=== PATIENT | male | born 1955 | race Caucasian/White ===

== ENCOUNTER 2019-02-06 10:05 | Outpatient (CLI) | payer MEDICARE, MEDICAID ==
--- NOTE | 2019-02-06 10:33 | RAD ---
2 views chest: 02/06/2019 COMPARISON: None available HISTORY: Dyspnea on exertion, COPD FINDINGS: Increased linear interstitial density with pulmonary hyperinflation noted, consistent with the provided history of COPD. Dual lead transvenous pacing device inserted via left subclavian approa ch. No pneumothorax or pleural fluid. No focal consolidation or alveolar edema. IMPRESSION: No acute findings.
== END 2019-02-06 10:06 | disposition home or self-care (01) ==
LOC: BICRAD 10:05
PROVIDERS: ATTEND Internal Medicine
DX: J44.9 Chronic obstructive pulmonary disease, unspecified (principal); R06.09 Other forms of dyspnea
CPT/HCPCS: 71046

== ENCOUNTER 2019-02-27 11:19 | Observation (INO) | payer MEDICARE, MEDICAID ==
[2019-02-27 11:43] LABS: #Basophils 0.1 thou/uL (0.0-0.2); #Eosinphils 0.4 thou/uL (0.0-0.7); #Lymphocytes 1.1 thou/uL (1.20-3.40); #Monocytes 0.6 thou/uL (0.11-0.59); #Neutrophils 2.8 thou/uL (1.40-6.50); %Basophils 1.1 % (0.0-1.0); %Eosinophils 7.4 % (0.0-10.0); %Lymphocytes 22.7 % (21.0-51.0); %Monocytes 12.6 % (0.0-10.0); %Neutrophils 56.1 % (42.0-75.0); Hemoglobin 12.9 g/dL (14.0-18.0); Mean Corpuscular HGB CONC 33.2 g/dL (32.0-36.0); Mean Corpuscular Hemoglobin 28.7 pg (27.0-31.0); Mean Corpuscular Volume 86.4 fL (78.0-98.0); Mean Platelet Volume 8.3 fL (7.4-10.4); Platelet Count 209 thou/uL (130-400); RBC Distribution Width 13.5 % (11.5-14.5); Red Blood Cell (RBC) Count 4.49 mill/uL (4.70-6.10); White Blood Cell (WBC) Count 4.9 thou/uL (4.8-10.8)
--- NOTE | 2019-02-27 11:48 | RAD ---
XR Chest 1 View Portable HISTORY: Chest pain COMPARISON: 02/06/2019 FINDINGS: The heart size is normal. The lungs are well expanded without focal areas of consolidation, pneumothorax or pleural effusions. Left-sided pacer device remains in place. There are degenerative changes in the spine. IMPRESSION: No radiographic evidence of acute cardiopulmonary process.
[2019-02-27 12:11] LABS: ALT (SGPT) 29 U/L (8-55); AST (SGOT) 29 U/L (5-34); Albumin 4.2 g/dL (3.4-4.8); Alkaline Phosphatase 62 U/L (40-150); Anion Gap 10 mmol/L (10-20); BUN (Urea Nitrogen) 15 mg/dL (8.4-25.7); Bilirubin, Total 0.5 mg/dL (0.2-1.2); CK (CPK) 469 U/L (30-200); Calc. Creatinine Clearance 0 mL/min (70-130); Calcium 9.6 mg/dL (7.8-10.44); Carbon Dioxide 25 mmol/L (23-31); Chloride 110 mmol/L (98-107); Estimated GFR-MDRD 75; Globulin 2.6 g/dL (2.4-3.5); Glucose 116 mg/dL (80-115); Lipase 46 U/L (8-78); Potassium 4.1 mmol/L (3.5-5.1); Protein, Total 6.8 g/dL (5.8-8.1); Sodium 141 mmol/L (136-145)
[2019-02-27] MEDS ORDERED: Aspirin Chewable 81 MG TAB ONE (14:02)
[2019-02-27 15:08] LABS: Troponin I Less than 0.010 ng/mL (< 0.028)
[2019-02-27 16:20] VITALS: BMI 30.3
[2019-02-27 18:10] LABS: Troponin I Less than 0.010 ng/mL (< 0.028)
[2019-02-27] MEDS ORDERED: Gabapentin 300 MG CAP PO SCH (21:45)
[2019-02-27] MEDS ORDERED: hydrOXYzine Pamoate 25 mg Capsule PO SCH (21:45)
[2019-02-27] MEDS ORDERED: Acetaminophen 325 MG TAB PO PRN (21:52)
[2019-02-27] MEDS ORDERED: Acetaminophen 650 MG Suppository PR PRN (21:52)
[2019-02-27] MEDS ORDERED: Ondansetron ODT 4 MG TAB PO PRN (21:52)
[2019-02-27] MEDS: ALPRAZolam 1 MG TAB PO PRN (22:24)
[2019-02-28] MEDS ORDERED: Sodium Chloride 0.9% 1,000 ML IV SCH (01:00)
[2019-02-28 02:05] VITALS: BP 168/88; TEMP 97.6
--- NOTE | 2019-02-28 02:09 | HP ---
CHIEF COMPLAINT: Chest pain. HISTORY OF PRESENT ILLNESS: Mr. Fishman is a pleasant 63-year-old man, who presents complaining of chest pain that has been going on for the last 2 weeks on the right side of his chest and became suddenly worse yesterday evening around 11 p.m. The patient states it felt like a tightness in the right side of his chest. He also experienced pain in his mid upper back. The patient reports having increased pain with movements. He has not had any improvement since last night. He states initially the pain was tolerable and is unable to rate it, but since yesterday evening, the pain has been 9/10 in severity. He denies any pain down his arms or up his jaw. No associated nausea, vomiting, or diaphoresis. He denies any trauma. He reports occasional cough at baseline, but has not had any coughing fits. No heavy lifting. Denies any shortness of breath or hemoptysis. No fevers, chills, or sweats. REVIEW OF SYSTEMS: All other review of systems is negative. PAST MEDICAL HISTORY: 1. CVA in 2007. 2. Hypertension. 3. Asthma. PAST SURGICAL HISTORY: 1. Neck and back surgery at age 23. 2. Pacemaker. SOCIAL HISTORY: The patient smokes. Denies any alcohol use or drug use. ALLERGIES: CODEINE. CURRENT MEDICATIONS: 1. Baby aspirin. 2. Allopurinol. PHYSICAL EXAMINATION: GENERAL: The patient appears well developed, well nourished, and is in no acute distress. VITAL SIGNS: Temperature 97.3, pulse 75, respirations 18, O2 saturation 95% on room air, blood pressure 173/82. HEENT: Normocephalic and atraumatic. Pupils are equal, round, and reactive to light. Sclerae without icterus. Oropharynx is clear. NECK: Supple without lymphadenopathy. LUNGS: Clear to auscultation bilaterally. CARDIAC: Regular rate and rhythm. He has tenderness to palpation of the right upper chest and sternum. Also with tenderness of the posterior thorax at the midline just below the level of the shoulder blades. No evidence of soft tissue swelling or erythema. ABDOMEN: Soft, nontender, nondistended. Normoactive bowel sounds present. EXTREMITIES: No lower leg swelling or calf tenderness. NEUROLOGIC: Alert and oriented x3. SKIN: Without rash or jaundice. LABORATORY DATA: White blood count 4.9, hemoglobin 12.9, hematocrit 38.8, and platelets 209. D-dimer 0.43. Sodium 141, potassium 4.1, anion gap 10, BUN 15, creatinine 1.01, GFR of 75, glucose 116, calcium 9.6, total bilirubin 0.5. LFTs unremarkable. Lipase 46. CK 469. Troponin negative x3. BNP 25. IMAGING DATA: Chest x-ray. No radiographic evidence of acute cardiopulmonary process. Left-sided pacer device in place. Degenerative changes in the spine present. IMPRESSION AND PLAN: Mr. Fishman is a pleasant 63-year-old man, being admitted for management of the followin. Chest pain. The pain is reproducible on exam and he does have tenderness with light palpation of the anterior mid and right-sided chest, as well as tenderness to the posterior thorax. No bone deformity. No evidence of trauma or skin changes. D-dimer is negative and chest x-ray is unremarkable. Troponin is negative x3. The patient does not recall any trauma, but it appears to be musculoskeletal in nature. We will provide analgesia and monitor. 2. Elevated CK. We will give IV fluids. Recheck with morning labs. 3. Hypertension. We will resume home medications and monitor blood pressure. 4. Hyperlipidemia. We will resume home medications. 5. Gastrointestinal prophylaxis. 6. Deep venous thrombosis prophylaxis. 7. Full code status. His surrogate decision maker is his son, Mao Fishman. The patient's case was discussed with Dr. Rizzo, who agrees with plan of care as described above. Job ID: [id number]
[2019-02-28 05:28] LABS: Anion Gap 11 mmol/L (10-20); BUN (Urea Nitrogen) 15 mg/dL (8.4-25.7); Calc. Creatinine Clearance 101 mL/min (70-130); Calcium 9.2 mg/dL (7.8-10.44); Carbon Dioxide 24 mmol/L (23-31); Cardiac Risk 5.5 (Less than 4.5); Chloride 112 mmol/L (98-107); Cholesterol 186 mg/dl (< 200 Desired); Estimated GFR-MDRD 75; Glucose 109 mg/dL (80-115); HDL Cholesterol 34 mg/dL (>60 Neg Risk); LDL Cholesterol, Calculated 79 mg/dL; Potassium 3.7 mmol/L (3.5-5.1); Sodium 143 mmol/L (136-145); Triglycerides 366 mg/dL (Less than 150)
[2019-02-28 05:33] LABS: Band 2 % (5-11); Eosinophils 10 % (0-10); Hemoglobin 11.3 g/dL (14.0-18.0); Lymphocytes 28 % (21-51); MDiff Complete? YES; Mean Corpuscular HGB CONC 33.6 g/dL (32.0-36.0); Mean Corpuscular Volume 86.2 fL (78.0-98.0); Mean Platelet Volume 8.4 fL (7.4-10.4); Monocytes 8 % (0-10); Neutrophil 48 % (42-75); Platelet Count 185 thou/uL (130-400); Platelet Morphology Comment Appears Adequate; RBC Distribution Width 13.6 % (11.5-14.5); Reactive Lymphocytes 1 % (0-10); Red Blood Cell (RBC) Count 3.91 mill/uL (4.70-6.10); White Blood Cell (WBC) Count 4.5 thou/uL (4.8-10.8)
[2019-02-28] MEDS: ALPRAZolam 1 MG TAB PO PRN (07:47)
[2019-02-28] MEDS ORDERED: buPROPion HCl 100 MG TAB PO SCH (09:00)
[2019-02-28] MEDS ORDERED: Allopurinol 100 MG TAB PO SCH (09:00)
[2019-02-28] MEDS ORDERED: Amlodipine 5 MG TAB PO SCH (09:00)
[2019-02-28] MEDS ORDERED: Enoxaparin Sodium 40 MG/0.4 ML SYRINGE SC SCH (09:00)
[2019-02-28] MEDS ORDERED: Meloxicam 7.5 MG TAB PO SCH (09:00)
[2019-02-28] MEDS ORDERED: Aspirin 81 mg Enteric Coated Tablet PO SCH (09:00)
[2019-02-28] MEDS ORDERED: cloNIDine 0.1 MG TAB PO SCH (09:00)
[2019-02-28] MEDS ORDERED: hydrOXYzine Pamoate 25 mg Capsule PO SCH (09:00)
[2019-02-28] MEDS ORDERED: Gabapentin 300 MG CAP PO SCH (09:00)
--- NOTE | 2019-02-28 10:34 | NM ---
CARDIAC SPECT: HISTORY: A 63-year-old male with chest pain, hypertension, diabetes, asthma, and CVA. Tobacco abuse. Pacemak er. TECHNIQUE: A myocardial perfusion scan was performed using the single isotope two day protocol with 33 millicuri es of technetium 99m sestamibi injected intravenously for stress and rest images. Pharmacologic stre ss with Lexiscan was monitored and interpreted by Gina Covarrubias, Nurse Practitioner. FINDINGS: Fairly homogeneous tracer distribution is seen in the myocardial segments on stress and rest images w ithout fixed or reversible defects. GATED SPECT LVEF: 52%. WALL MOTION EXAM: Normal. IMPRESSION: Normal myocardial perfusion scan. POS: OFF
[2019-02-28] MEDS ORDERED: Regadenoson 0.4 MG/5 ML SYRINGE ONE (15:48)
[2019-02-28] MEDS ORDERED: Atorvastatin Calcium 40 MG TAB PO SCH (21:00)
== END 2019-02-28 11:55 | disposition home or self-care (01) ==
LOC: ERS 11:19 → 2SW 15:41
PROVIDERS: ADMIT Internal Medicine; ATTEND Internal Medicine
DX: R07.89 Other chest pain (principal); M54.9 Dorsalgia, unspecified; I10 Essential (primary) hypertension; J45.909 Unspecified asthma, uncomplicated; E78.5 Hyperlipidemia, unspecified; R74.8 Abnormal levels of other serum enzymes; Z79.82 Long term (current) use of aspirin; Z79.899 Other long term (current) drug therapy; Z86.73 Personal history of transient ischemic attack (TIA), and cerebral infarction without residual deficits; Z95.0 Presence of cardiac pacemaker
CPT/HCPCS: 71045; 78452; 80048; 80053; 80061; 82550 ×2; 83690; 83880; 84484 ×2; 85025 ×2; 85379; 93005; 93017; 97139; 99285; A9500; G0378 ×2; 36415; 36416; J2785; Q0177

== ENCOUNTER 2019-04-15 11:24 | Inpatient (IN) | payer MEDICARE, MEDICAID ==
[2019-04-15] MEDS ORDERED: Aspirin 325 MG TAB ONE (11:46)
[2019-04-15] MEDS ORDERED: Nitroglycerin 0.4 MG TAB 1 EACH ONE (11:46)
[2019-04-15] MEDS ORDERED: Acetaminophen 500 MG TAB ONE (11:49)
[2019-04-15 11:56] LABS: #Basophils 0.1 thou/uL (0.0-0.2); #Eosinphils 0.4 thou/uL (0.0-0.7); #Lymphocytes 1.6 thou/uL (1.20-3.40); #Monocytes 0.9 thou/uL (0.11-0.59); #Neutrophils 4.7 thou/uL (1.40-6.50); %Basophils 0.9 % (0.0-1.0); %Eosinophils 4.8 % (0.0-10.0); %Lymphocytes 20.7 % (21.0-51.0); %Monocytes 11.9 % (0.0-10.0); %Neutrophils 61.7 % (42.0-75.0); Hemoglobin 13.3 g/dL (14.0-18.0); Mean Corpuscular HGB CONC 33.5 g/dL (32.0-36.0); Mean Corpuscular Hemoglobin 29.6 pg (27.0-31.0); Mean Corpuscular Volume 88.3 fL (78.0-98.0); Mean Platelet Volume 8.6 fL (7.4-10.4); Platelet Count 195 thou/uL (130-400); Red Blood Cell (RBC) Count 4.48 mill/uL (4.70-6.10); White Blood Cell (WBC) Count 7.7 thou/uL (4.8-10.8)
--- NOTE | 2019-04-15 12:24 | RAD ---
AP view chest HISTORY: Chest pain. AP view chest is obtained on 04/15/2019. Comparison made to previous exam from 02/27/2019. AP view chest demonstrates a dual-lead intracardiac pacing device. The lungs are well aerated. No nick dence of active intrathoracic disease seen. No evidence of effusions, pneumonia or pneumothorax seen. IMPRESSION: Unremarkable AP view chest.
[2019-04-15 12:27] LABS: ALT (SGPT) 26 U/L (8-55); AST (SGOT) 26 U/L (5-34); Albumin 4.6 g/dL (3.4-4.8); Alkaline Phosphatase 69 U/L (40-150); Anion Gap 13 mmol/L (10-20); BUN (Urea Nitrogen) 14 mg/dL (8.4-25.7); Bilirubin, Total 0.5 mg/dL (0.2-1.2); CK (CPK) 400 U/L (30-200); Calc. Creatinine Clearance 0 mL/min (70-130); Calcium 10.1 mg/dL (7.8-10.44); Carbon Dioxide 24 mmol/L (23-31); Chloride 109 mmol/L (98-107); Estimated GFR-MDRD 61; Globulin 2.7 g/dL (2.4-3.5); Glucose 107 mg/dL (80-115); Potassium 4.2 mmol/L (3.5-5.1); Protein, Total 7.3 g/dL (5.8-8.1); Sodium 142 mmol/L (136-145)
[2019-04-15] MEDS ORDERED: Ketorolac Tromethamine 30 MG/ML VIAL ONE (13:22)
[2019-04-15 16:43] LABS: Troponin I Less than 0.010 ng/mL (< 0.028)
[2019-04-15] MEDS ORDERED: Morphine 4 MG/ML VIAL ONE ×2 (16:55→16:56)
[2019-04-15 17:45] VITALS: BMI 29.6
[2019-04-15 19:07] LABS: Troponin I Less than 0.010 ng/mL (< 0.028)
[2019-04-15] MEDS ORDERED: Ondansetron PF 4 MG/2 ML Vial IVP PRN (20:53)
[2019-04-15] MEDS ORDERED: Senokot S 8.6-50 MG TAB PO PRN (20:53)
--- NOTE | 2019-04-15 21:25 | CON ---
DATE OF CONSULTATION: HISTORY OF PRESENT ILLNESS: The patient is a 63-year-old gentleman, presents with recurrent chest discomfort. The patient in 2018 was in [facility] in [place] when he presented with chest discomfort. He underwent a cardiac catheterization and found to have normal left systolic function with normal coronary arteries. He also was diagnosed with sick sinus syndrome and had placement of electronic pacemaker. Ever since the pacemaker, he reports pain along the site of his pacemaker. He was admitted in February of this year with chest discomfort. It was tender along the site of his pacemaker. He underwent a Cardiolite stress test which revealed him to have normal left ventricular systolic function estimated ejection of 52% with no evidence of ischemia. The patient today was lifting a heavy object when he suddenly developed pain once again along the site of his pacemaker. The patient states whenever he moves in a certain position the chest pain worsens. PAST MEDICAL HISTORY: 1. Cerebrovascular disease. 2. Asthma. 3. Hypertension. 4. Dyslipidemia. 5. Rheumatoid arthritis. PAST SURGICAL HISTORY: Endarterectomy, and knee surgery. SOCIAL HISTORY: Long history of tobacco abuse. FAMILY HISTORY: Positive family history of heart disease. MEDICATIONS: See nursing list. PHYSICAL EXAMINATION: GENERAL: This is a well-developed gentleman, in no acute distress. VITAL SIGNS: Blood pressure 130/70. NECK: No jugular venous distention. LUNGS: Clear to auscultation. HEART: Regular rate and rhythm. Normal S1, S2. No murmurs. ABDOMEN: Nondistended. EXTREMITIES: Show no edema. LABORATORY DATA: Sodium 142, potassium 4.2, chloride 109, bicarbonate 24, BUN 14, creatinine 1.2. Troponin less than 0.01. White blood cell count 7.7, hemoglobin 13.3, hematocrit 39.6, platelets are 195. EKG revealed normal sinus rhythm, normal ECG. IMPRESSION: 1. Atypical chest pain, suggestive of musculoskeletal discomfort. 2. History of cerebrovascular disease. 3. Hypertension. 4. Dyslipidemia. 5. Tobacco abuse. This gentleman presents with atypical chest pain. He was lifting very heavy objects when he developed persistent pain along the site of his pacemaker. His EKG was unremarkable. Cardiac enzymes revealed no evidence of myocardial infarction. We will follow this patient with you through his hospitalization. Job ID: [id number] [facility]
[2019-04-15] MEDS: cloNIDine 0.1 MG TAB PO SCH (21:43)
[2019-04-15] MEDS: Gabapentin 300 MG CAP PO SCH (21:45)
[2019-04-15] MEDS: ALPRAZolam 1 MG TAB PO PRN (21:45)
[2019-04-15] MEDS: Atorvastatin Calcium 40 MG TAB PO SCH (21:45)
[2019-04-15] MEDS: Meloxicam 7.5 MG TAB PO SCH (21:45)
[2019-04-15] MEDS: hydrOXYzine Pamoate 25 mg Capsule PO SCH (21:45)
[2019-04-15] MEDS: Acetaminophen 325 MG TAB PO PRN (21:46)
[2019-04-15] MEDS: Sodium Chloride 0.9% 1,000 ML IV SCH (23:04)
--- NOTE | 2019-04-16 02:57 | HP ---
TIME OF ENCOUNTER: 6:00 p.m. CHIEF COMPLAINT: Chest pain and vomiting. HISTORY OF PRESENT ILLNESS: The patient is a 63-year-old male with past medical history significant for history of CVA in 2008, carotid artery stenosis status post right CEA in 2007, and history of atypical chest pain with normal MPI last week, who presented to the hospital today with complaints of chest pain. 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 The chest pain was exacerbated with movement. When he bent over, he did feel dizzy as well, and because of his symptoms, he presented to the ER for further workup and treatment. On the way, the patient stated that he was nauseated and vomited several times on the way here. On arrival to the ER, workup included EKG, which showed normal sinus rhythm with occasional AV pacing, no acute ST or T- wave changes. His serial troponin was negative. The patient also complained of some associated left sided facial numbness. He denied any slurred speech or other focal symptoms. At the time of my interview, his left jaw and facial paresthesia was improving and almost resolved. The patient tells me that he is currently being evaluated by Dr. Johnson in the outpatient setting on the of this month for left-sided carotid artery stenosis and I am assuming consideration of possible carotid endarterectomy. The patient denies any change in his vision or upper or lower extremity focal weakness. REVIEW OF SYSTEMS: 12-point review of systems performed and is largely negative except that stated above. At the time of my interview, the patient's nausea and vomiting has subsided and he is tolerating a full diet. He has had some chronic chest wall pain after his pacemaker implant last year. No other complaints of recent illnesses, sick contacts or blood in his urine or stool. PAST MEDICAL HISTORY: Asthma, prior CVA, depression, GERD, gout, history of sick sinus syndrome status post dual chamber [employer] pacemaker in 2018, hypertension , chronic neck pain, IBS, and rheumatoid arthritis. PAST SURGICAL HISTORY: Cervical spinal fusion in the past, right endarterectomy , knee replacement, pacemaker implant as mentioned in 2018 and left heart catheterization in 2018, which revealed normal coronary arteries. ALLERGIES: CODEINE SULFATE AND DEMEROL. HOME MEDICATIONS: Hydroxyzine 25 mg TID PRN ASA 81 mg daily Lipitor 40 mg qhs Xanax 1mg TID Bupropion 100 mg QD Clonidine 0.1 mf QHS Gabapentin 600 mg TID Meloxicam 15 mg QD Omeprazole 40 mg QD amlodipine 5 mg daily Vascepa 2 gm BID Mirtazapine 15 mg QHS SOCIAL HISTORY: The patient is a current smoker, but has been trying to cut back and is currently only smoking 1 cigarette per day. He denies any alcohol or illicit drug use. FAMILY HISTORY: Positive for lung cancer. PHYSICAL EXAMINATION: VITAL SIGNS: Blood pressure 155/72, pulse is 60, O2 saturation is 97% on room air, and respirations are 16. GENERAL: This is a mildly obese male, sitting up in bed, resting comfortably in no acute distress. HEENT: Head is atraumatic, normocephalic, poor dentition. Mucous membranes are moist. NECK: Trachea is midline. No obvious JVD. I can appreciate no bruit on the left or the right. CV: S1 and S2. Regular rate and rhythm. No appreciable murmurs, rubs, or gallops. LUNGS: Regular respiratory rate and pattern. Clear to auscultation bilaterally. ABDOMEN: Positive bowel sounds. Soft, nontender. No masses. Mildly obese. EXTREMITIES: No edema. Lower extremities are warm and well perfused. NEUROLOGIC: Cranial nerves 2 through 12 are intact. The patient is nonfocal on my exam. SKIN: Warm and dry. Multiple tattoos present. LABORATORY DATA: White blood cell count 7.7, hemoglobin 13.3, hematocrit 39.6, platelet count 195. Sodium 142, potassium 4.2, chloride 109, anion gap 13, BUN 14, creatinine 1.2. AST, ALT, alkaline phosphatase all within normal limits. Creatine kinase is 400. Serial troponin was negative. ASSESSMENT: 1. Chest pain, noncardiac, likely musculoskeletal in nature. 2. Left face and jaw numbness/paresthesia, resolving, questionable etiology at this point, possible transient ischemic attack. 3. Nausea and vomiting, resolved. 4. Elevated creatine kinase. 5. Carotid artery stenosis bilateral, status post right carotid endarterectomy in 2007, now with at least moderate stenosis on the left per carotid duplex (per patient, records not currently available). 6. Prior cerebrovascular accident. 7. Tobacco abuse. 8. Hypertension. PLAN: ACS has been ruled out in this patient, and the patient's primary livestock breeder has been consulted. Very much appreciate Dr. Ponce's recommendations. The patient does have history of normal myocardial perfusion imaging study last week along with normal left heart catheterization showing normal coronaries in 2018. Given the patient's complaint of left-sided facial numbness and paresthesia, we will go ahead and obtain a CTA of the head and neck to rule out critical or symptomatic carotid artery stenosis. The patient does have an appointment with Dr. Johnson on April 23 to be evaluated for possible left carotid endarterectomy. Regarding elevated CK, this may be secondary to mild dehydration and we will gently provide IV fluid resuscitation and repeat CK in the morning. Unable to perform an MRI in the setting of pacemaker in-situ. We will await findings of CTA, and if noncritical, the patient may be a candidate for outpatient evaluation with Dr. Johnson as scheduled. For now, we will hold off on Plavix until we obtain the results of the CTA. Continue aspirin and statin and patient's other home medications. Job ID: [id number] [facility]
[2019-04-16 05:49] LABS: #Basophils 0.1 thou/uL (0.0-0.2); #Eosinphils 0.4 thou/uL (0.0-0.7); #Lymphocytes 1.6 thou/uL (1.20-3.40); #Monocytes 0.8 thou/uL (0.11-0.59); #Neutrophils 2.7 thou/uL (1.40-6.50); %Basophils 1.5 % (0.0-1.0); %Eosinophils 7.1 % (0.0-10.0); %Lymphocytes 29.1 % (21.0-51.0); %Monocytes 14.2 % (0.0-10.0); %Neutrophils 48.2 % (42.0-75.0); Hemoglobin 12.5 g/dL (14.0-18.0); Mean Corpuscular HGB CONC 33.4 g/dL (32.0-36.0); Mean Corpuscular Hemoglobin 29.7 pg (27.0-31.0); Mean Corpuscular Volume 88.9 fL (78.0-98.0); Mean Platelet Volume 8.3 fL (7.4-10.4); Platelet Count 177 thou/uL (130-400); RBC Distribution Width 12.9 % (11.5-14.5); Red Blood Cell (RBC) Count 4.22 mill/uL (4.70-6.10); White Blood Cell (WBC) Count 5.6 thou/uL (4.8-10.8)
[2019-04-16 06:16] LABS: Anion Gap 11 mmol/L (10-20); BUN (Urea Nitrogen) 16 mg/dL (8.4-25.7); CK (CPK) 225 U/L (30-200); Calc. Creatinine Clearance 96 mL/min (70-130); Carbon Dioxide 23 mmol/L (23-31); Chloride 111 mmol/L (98-107); Estimated GFR-MDRD 72; Glucose 89 mg/dL (80-115); Sodium 141 mmol/L (136-145)
[2019-04-16] MEDS ORDERED: Heparin 0 ML ONE (07:39)
[2019-04-16] MEDS: Escitalopram Oxalate 10 mg Tablet PO SCH (09:28)
[2019-04-16] MEDS: Allopurinol 100 MG TAB PO SCH (09:28)
[2019-04-16] MEDS: hydrOXYzine Pamoate 25 mg Capsule PO SCH ×3 (09:28→20:34)
[2019-04-16] MEDS: Aspirin 81 mg Enteric Coated Tablet PO SCH (09:28)
[2019-04-16] MEDS: Meloxicam 7.5 MG TAB PO SCH ×2 (09:28→20:34)
[2019-04-16] MEDS: Gabapentin 300 MG CAP PO SCH ×3 (09:28→20:33)
[2019-04-16] MEDS: ALPRAZolam 1 MG TAB PO PRN ×2 (09:31→20:33)
--- NOTE | 2019-04-16 09:37 | CT ---
CTA NECK WITH CONTRAST: INDICATIONS: Slurred speech. CVA. TECHNIQUE: Multiple axial tomograms obtained through the neck with IV enhancement, following angio protocol. Mu ltiplanar reconstruction and 3D post processing performed. FINDINGS: The common origin of the innominate and left common carotid at the arch. No stenosis at the arch. Both common carotids are patent and unremarkable. On the right, there is occlusion of the right internal carotid artery, at its origin. This entire ri t internal carotid artery is thrombosed, including intracranial and extracranial portions. On the left, there is atherosclerotic calcification in the left bulb and proximal left ICA. This pro duces moderate stenosis in the proximal left ICA. The degree of stenosis is suboptimally evaluated s econdary to the densely calcified plaque; however, the degree of stenosis is hemodynamically signific ant and is estimated at 60% to 70% by NASCET criteria. Vertebral arteries are patent and appear symmetric. Basilar artery appears patent. SOFT TISSUES: No soft tissue abnormality. IMPRESSION: 1. Occlusion of the right internal carotid artery at its origin with thrombosis of the entire intrac ranial and extracranial right internal carotid artery. 2. Prominent calcified plaque at the left bulb and proximal left internal carotid artery, which prod uces hemodynamically significant stenosis in the proximal left internal carotid artery. POS: [facility]
--- NOTE | 2019-04-16 09:45 | CT ---
CTA HEAD WITH AND WITHOUT CONTRAST: Multiple axial tomograms were obtained through the head without IV enhancement. This was followed by tomograms through the head with IV enhancement following a cerebral angio protocol with multiplanar reconstruction and 3d postprocessing. INDICATION: Slurred speech. History of CVA. FINDINGS: CT HEAD WITHOUT CONTRAST: No comparison. Ventricles have normal size and position. No evidence of intracranial mass or hemorrhage. No eviden ce of acute cortical infarct. Postoperative changes involving the left maxillary sinus with deformit y and mild mucosal edema. Paranasal sinuses and mastoids are otherwise well aerated. IMPRESSION: No acute intracranial process on noncontrast head CT. CTA HEAD: The intracranial right internal carotid artery is occluded. The left intracranial internal carotid artery is patent. There is intact iliamna of [place] which fills the right middle cerebral artery. Both middle cerebral arteries are patent and symmetric. Anterior cerebral arteries are patent and symmetric. The basilar artery is patent. The right posterior cerebral is patent and unremarkable. There is a t iny P1 segment on the left which is stenotic. This may be congenital. The left posterior communicat or is patent and this does feed the left posterior cerebral which is otherwise unremarkable. IMPRESSION: 1. Occlusion of the intracranial right ICA. 2. There is intact iliamna of [place] with opacification of the right middle cerebral artery which dacia ears patent and symmetric with the left middle cerebral. 3. Tiny stenotic P1 segment on the left. The left posterior cerebral beyond the anterior communicat or is otherwise patent and symmetric with the right posterior cerebral. POS: [facility]
[2019-04-16] MEDS: Sodium Chloride 0.9% 1,000 ML IV SCH (11:09)
[2019-04-16] MEDS ORDERED: Morphine 2 MG/ML SYRINGE SLOW IVP PRN (11:33)
--- NOTE | 2019-04-16 14:58 | PDOC.PN ---
- Subjective Encounter Start Date: 04/16/19 Encounter Start Time: 10:15 Subjective: Patient examined today, denies complaints -: Reports left jaw pain has improved - Objective Vital Signs & Weight: Vital Signs (12 hours) Temp Pulse Resp BP Pulse Ox 04/16/19 11:30 97.3 F L 66 16 126/68 96 04/16/19 07:31 97.4 F L 72 18 127/66 97 Weight Weight 93.712 kg I&O: 04/15/19 04/16/19 04/17/19 06:59 06:59 06:59 Intake Total 775 Balance 775 Result Diagrams: 04/16/19 05:14 04/16/19 05:14 Phys Exam - Physical Examination HEENT: PERRLA, moist MMs Neck: no nodes, full ROM No bruits noted Respiratory: clear to auscultation bilateral Cardiovascular: RRR Gastrointestinal: soft, non-tender Musculoskeletal: no edema, pulses present Neurological: non-focal, normal sensation Lymphatic: no nodes Psychiatric: normal affect, A&O x 3 Skin: no rash, cap refill <2 seconds Dx/Plan - Plan cont current plan of care Left carotid with 60-70% stenosis, rt occluded, consulted CV surgery -: They will take to the OR tomorrow -: Will monitor VS and recheck labs in AM * . Review of Systems - Review of Systems Cardiovascular: chest pain - Medications/Allergies Allergies/Adverse Reactions: Allergies Allergy/AdvReac Type Severity Reaction Status Date / Time codeine Allergy Verified 02/27/19 15:44 Medications: Current Medications Acetaminophen (Tylenol) 650 mg PO Q4H PRN PRN Reason: Headache/Fever/Mild Pain (1-3) Last Admin: 04/15/19 21:46 Dose: 650 mg Allopurinol (Zyloprim) 100 mg PO DAILY ANNEL Last Admin: 04/16/19 09:28 Dose: 100 mg Alprazolam (Xanax) 1 mg PO TID PRN PRN Reason: Anxiety/Restlessness/Sleep Last Admin: 04/16/19 09:31 Dose: 1 mg Aspirin (Ecotrin) 81 mg PO DAILY ANNEL Last Admin: 04/16/19 09:28 Dose: 81 mg Atorvastatin Calcium (Lipitor) 40 mg PO HS [facility] Last Admin: 04/15/19 21:45 Dose: 40 mg Cefazolin Sodium (Cabg-Ancef) 2 gm SLOW IVP ONE [facility] Stop: 04/17/19 23:59 Clonidine (Catapres) 0.1 mg PO HS [facility] Last Admin: 04/15/19 21:43 Dose: 0.1 mg Escitalopram Oxalate (Lexapro) 10 mg PO DAILY [facility] Last Admin: 04/16/19 09:28 Dose: 10 mg Gabapentin (Neurontin) 600 mg PO TID [facility] Last Admin: 04/16/19 14:30 Dose: 600 mg Hydroxyzine Pamoate (Vistaril) 25 mg PO TID [facility] Last Admin: 04/16/19 14:30 Dose: 25 mg Sodium Chloride (Normal Saline 0.9%) 1,000 mls @ 75 mls/hr IV .[id number] [facility] Last Admin: 04/16/19 11:09 Dose: 1,000 mls Meloxicam (Mobic) 7.5 mg PO BID [facility] Last Admin: 04/16/19 09:28 Dose: 7.5 mg Morphine Sulfate (Morphine) 2 mg SLOW IVP Q4H PRN PRN Reason: Moderate to Severe Pain Last Admin: 04/16/19 11:37 Dose: 2 mg Ondansetron HCl (Zofran) 4 mg IVP Q6H PRN PRN Reason: Nausea/Vomiting Pantoprazole Sodium (Protonix) 40 mg PO DAILY [facility] Last Admin: 04/16/19 09:28 Dose: 40 mg Senna/Docusate Sodium (Senokot S) 2 tab PO BID PRN PRN Reason: Constipation Sodium Chloride (Flush - Normal Saline) 10 ml IVF Q12HR [facility] Last Admin: 04/16/19 09:29 Dose: 10 ml Sodium Chloride (Flush - Normal Saline) 10 ml IVF PRN PRN PRN Reason: Saline Flush
--- NOTE | 2019-04-16 16:30 | CON ---
DATE OF CONSULTATION: CHIEF COMPLAINT: Chest pain. HISTORY OF PRESENT ILLNESS: The patient is a 63-year-old man, who fairly recently moved here from [place], [place]. He has a known history of cerebrovascular disease, having undergone right carotid endarterectomy in 2007 and having undergone a cardiac evaluation that apparently included cardiac catheterization and a dual-chamber pacemaker placement about a year ago. The patient has had problems on and off with pain at the pacemaker pocket site and yesterday while helping his son paint his house. He hurriedly picked up a 5-gallon can of paint with that side and had sharp pain associated with the pacemaker site. Again, he also had some milder mid anterior chest pain that has persisted. He reports almost as a coincidental findings, some left facial numbness that is gradually resolving. He also had some nausea and vomiting associated with this. He ruled out for myocardial infarction and he underwent CT angiography of the cervical and intracranial circulation, which demonstrated an occluded right internal carotid and significant calcified plaque in the left carotid system in the neck. The patient says that he had some dysarthria in 2007, which he says was associated with the constellation of problems that ultimately led to his endarterectomy on the right side. He says that about 3 months ago, he noticed his left arm and to a lesser degree, his left leg seemed weaker than normal. He has had some persistent numbness in the inner aspect of the left leg after he had some knee surgery few years ago. He has not had any transient eye symptoms consistent with amaurosis fugax, has not had any recent dysarthria, and has not had any right body symptoms. PAST MEDICAL HISTORY: Also significant for hypertension, asthma, and rheumatoid arthritis. HOME MEDICATIONS: 1. Clonidine 0.1 mg at bedtime. 2. Norvasc 5 mg a day. 3. Baby aspirin a day. 4. Lipitor 40 mg a day. 5. Hydroxyzine 25 mg t.i.d. 6. Allopurinol 100 mg a day. 7. Prilosec 40 mg a day. 8. Mobic 7.5 mg b.i.d. 9. Neurontin 600 mg t.i.d. 10. Escitalopram 10 mg a day. 11. Xanax 1 mg t.i.d. as needed. Those medications have been continued. SOCIAL HISTORY: The patient is a long-time smoker, although he has recently tried to cut down. ALLERGIES: HE REPORTS ITCHING WITH CODEINE, OTHERWISE HAS KNOWN DRUG ALLERGIES. FAMILY HISTORY: Significant for coronary artery disease. REVIEW OF SYSTEMS: Positive for his chest pain and neurologic findings as listed above. PHYSICAL EXAMINATION: GENERAL: He is a well weathered 63-year-old. VITAL SIGNS: He is 5 feet 10 inches, weighs 206.5 pounds. Heart rate is 66, blood pressure 126/68, room air O2 saturations are 96%. He has been afebrile. In the emergency room, his heart rate was 79, blood pressure 161/67 on presentation. NECK: He has no obvious carotid bruits. No JVD. HEENT: No xanthelasma. He has extremely poor dentition. CHEST: Clear to auscultation. He has a regular rate and rhythm. He has a palpable pacemaker generator in the left upper chest. ABDOMEN: Soft and nontender. He has some mild weakness of his left powder carrier, left elbow flexors and to a lesser extensors. He has some milder weakness of left plantar and dorsiflexion. His right-sided upper and lower extremity strength seems normal. LABORATORY DATA: His white count was 7.7, hemoglobin 13.3, hematocrit 39.6, platelets 195,000. His chemistries were essentially normal with the exception of a CK of 400 that this morning was down to 225. His albumin was 4.6, BUN was 14 and creatinine 1.2 yesterday, 16 and 1.04 this morning. His chest x-ray shows prominent pulmonary vascular markings and a dual-chamber pacemaker in place what would appear to represent a left subclavian approach. The carotid ultrasound that he had in Dr. Pnoce's office showed an occluded right internal carotid. His left internal carotid had a peak velocity of 148 in the common of 81. His CTA here confirms the right internal carotid occlusion. On the left side, he has extensive calcified plaque involving the left carotid bulb, proximal and mid internal carotid just distal to the calcification. The carotid takes a relatively sharp medial course on both axial and sagittal sections. Residual lumen appears at the maximum represent around 75% or 80% stenosis by my measurements. IMPRESSION AND RECOMMENDATIONS: Almost surely asymptomatic and unrelated to his current presentation, it would seem to me that the patient's left carotid stenosis is bad enough to warrant consideration for endarterectomy. The patient is in spite of his outward appearance is relatively young and by report has normal coronaries and a good ejection fraction. I would recommend proceeding with endarterectomy and he is agreeable to proceed. Job ID: [id number]
[2019-04-16] MEDS: Atorvastatin Calcium 40 MG TAB PO SCH (20:33)
[2019-04-16] MEDS: cloNIDine 0.1 MG TAB PO SCH (20:33)
[2019-04-17] MEDS ORDERED: Protamine Sulfate 50 MG/5 ML VIAL ONE ×2 (06:40→10:47)
[2019-04-17] MEDS ORDERED: Heparin 5,000 UNITS/ML VIAL ONE (06:40)
[2019-04-17] MEDS ORDERED: Fentanyl 100 MCG/2 ML VIAL ONE ×3 (07:11→11:44)
[2019-04-17] MEDS ORDERED: Midazolam HCl 2 mg/2 ml Vial ONE (07:42)
[2019-04-17] MEDS: Sodium Chloride 0.9% 1,000 ML IV SCH ×3 (09:31→22:47)
[2019-04-17] MEDS: Allopurinol 100 MG TAB PO SCH (09:38)
[2019-04-17] MEDS: Amlodipine 5 MG TAB PO SCH (09:38)
[2019-04-17] MEDS: Escitalopram Oxalate 10 mg Tablet PO SCH (09:39)
[2019-04-17] MEDS: hydrOXYzine Pamoate 25 mg Capsule PO SCH ×3 (09:39→23:06)
[2019-04-17] MEDS: Gabapentin 300 MG CAP PO SCH ×3 (09:39→21:58)
[2019-04-17] MEDS: Meloxicam 7.5 MG TAB PO SCH ×2 (09:39→23:04)
[2019-04-17] MEDS: Aspirin 81 mg Enteric Coated Tablet PO SCH (09:39)
[2019-04-17] MEDS ORDERED: Promethazine HCl 25 MG/ML VIAL IM PRN (11:26)
[2019-04-17] MEDS ORDERED: Promethazine HCl 25 MG/ML VIAL SLOW IVP PRN (11:26)
[2019-04-17] MEDS ORDERED: Ondansetron HCl/PF 4 MG/2 ML Vial IVP PRN (11:26)
[2019-04-17] MEDS ORDERED: HYDROcodone/Acetaminophen 5/325 mg Tablet PO PRN ×2 (13:07)
[2019-04-17] MEDS ORDERED: hydrALAZINE 20 MG/ML VIAL SLOW IVP PRN (13:07)
[2019-04-17] MEDS ORDERED: Fentanyl 100 MCG/2 ML VIAL SLOW IVP PRN (13:07)
[2019-04-17] MEDS ORDERED: Acetaminophen 325 MG TAB PO PRN (13:07)
[2019-04-17] MEDS ORDERED: Ondansetron PF 4 MG/2 ML Vial IVP PRN (13:07)
[2019-04-17] MEDS ORDERED: Albumin 5% 250 ML ONE (13:20)
[2019-04-17] MEDS ORDERED: DOPamine 400 MG/D5W 250 ML 250 ML IVPB SCH (13:45)
--- NOTE | 2019-04-17 14:13 | OP ---
DATE OF PROCEDURE: 04/17/2019 PROCEDURE PERFORMED: Left carotid endarterectomy with bovine pericardial patch angioplasty. PREOPERATIVE DIAGNOSIS: Left carotid stenosis with right carotid occlusion. POSTOPERATIVE DIAGNOSIS: Left carotid endarterectomy with bovine pericardial patch angioplasty. ANESTHESIA: General endotracheal anesthesia. INDICATIONS: The patient is a 63-year-old man with a pending appointment for evaluation of left carotid stenosis, who was admitted to the hospital with musculoskeletal chest wall pain in close proximity to his pacemaker after having picked up a heavy object. A history of left facial paresthesias was elicited. This combined with his known carotid disease, prompted CT angiography. This demonstrated his previously endarterectomized right carotid was occluded and he had extensive calcified plaque causing significant stenosis in the left carotid system. He is now taken to the operating room for left carotid endarterectomy. FINDINGS: Long segment of the bulb in internal carotid artery involved with heavily calcified plaque causing a high-grade stenosis that was densely adherent to the underlying vessel. The internal carotid was a large good quality vessel beyond that with brisk backflow bleeding. Pre-shunt clamp time was 12 minutes. Shunt time was 42 minutes. Post-shunt clamp time was 3 minutes. DESCRIPTION OF PROCEDURE: After informed consent was obtained, the patient was taken to the operating room, placed in supine position on the operating table. After the induction of general anesthesia, the patient's neck was extended and rotated towards the right. His left neck was then prepped and draped in sterile fashion. An oblique incision was made in the skin crease on the left neck using a scalpel and electrocautery. The dissection was carried through the subcutaneous tissue and platysma and through medial to the sternocleidomastoid muscle and internal jugular vein. The facial vein and other large tributaries to the jugular system crossing the operative field were ligated and divided. The common carotid artery was dissected free from the sheath and the vagus nerve and looped with a vessel loop. The dissection was carried distally beyond the level of the digastric muscle and hypoglossal nerve dividing the ansa cervicalis and the sling vessels to allow for adequate exposure of the internal carotid artery distally without undue traction on the hypoglossal nerve. The external carotid system was looped in mass with a vessel loop and the vagus was gently dissected free from the carotid in the course of isolating the common and internal carotid arteries. After adequate circulation time of heparin, the internal carotid, common carotid, and external carotid systems were sequentially occluded. A longitudinal arteriotomy was made in the distal common carotid artery and it extended proximally and distally with Murphy scissors. An endarterectomy plane was developed at the level of the bulb with the tip of the scissors and then further developed with an elevator. Plaque was transected at the common carotid level, everted from the external carotid system and then broken off distally in the internal carotid. Calcified plaque was densely adherent to the underlying vessel. The plaque initially broke off distally with a remnant of a rough calcified plaque adherent to the vessel wall. This required considerable tailoring to elevate it and leave us move feathering edge. The endarterectomy bed was forcefully irrigated paying particular attention to the distal feather and proximal transection points. An intraluminal carotid shunt was inserted first distally in the internal carotid and then proximally in the common carotid, aspirating on the side port of the shunt for allowing antegrade flow through it into the internal carotid system. During the initial attempt at placing the internal carotid limb of the shunt, it apparently slipped out and control of the vessel had to be obtained with direct finger pressure while blood was aspirated from the wound sufficiently to allow for clamp control of the carotid even when successfully placed back bleeding around, the internal limb of the shunt had to be controlled with the shunt clamp. A bovine pericardial patch was used as an onlay patch to close the arteriotomy. It was relatively long arteriotomy to taken to account the extensive area of internal carotid involvement and a common carotid shunt clamp had to be used for proximal control around the shunt because of tendency of the vessel loop to write up over the proximal apex of the arteriotomy. With about half a centimeter of the suture line left to complete, the shunt was clamped and removed and vascular control reestablished on the internal carotid at its origin and on the common carotid with vessel loops. The remaining arteriotomy was sewn. The vessels were forward and back bled to allow for flushing of any air or residual debris out the arteriotomy or into the external carotid system. The suture line was secured and antegrade flow was allowed first into the external carotid and then into the internal carotid. Gross hemostasis appeared to be adequate and the wound was packed off. After several minutes, the packing was removed, and it could be seen that there was blood oozing from around the distal apex of the patch suture line without any distinct bleeding points. Fine Prolene suture was used to control this, but when there was still oozing from another point on the suture line, it was elected to first partially and then ultimately completely reverse the heparin with protamine. When hemostasis was adequate, the platysma was reapproximated with running Vicryl and the skin was closed with 5-0 Vicryl subcuticular suture and Steri-Strips. The wound was dressed. The patient was awakened and extubated in the operating room and taken to recovery area in good condition, moving all extremities. Job ID: [id number]
[2019-04-17] MEDS ORDERED: ePHEDrine 50 MG/ML VIAL ONE (15:10)
[2019-04-17] MEDS ORDERED: Ondansetron PF 4 MG/2 ML Vial ONE ×2 (15:10→15:12)
[2019-04-17] MEDS ORDERED: Dexamethasone 20 MG/5 ML VIAL ONE (15:10)
[2019-04-17] MEDS ORDERED: Lidocaine 1% PF 5 ML VIAL ONE (15:10)
[2019-04-17] MEDS ORDERED: PROPOFOL 200 MG/20 ML VIAL ONE (15:10)
[2019-04-17] MEDS ORDERED: Rocuronium Bromide 10 MG/ML (10ML VIAL) ONE (15:10)
[2019-04-17] MEDS ORDERED: PHENYLEPHRINE-NS 100 MCG/ML 10 ML SYRINGE ONE (15:10)
[2019-04-17] MEDS ORDERED: Glycopyrrolate 0.2 MG/ML 5 ML SYRINGE ONE (15:12)
[2019-04-17] MEDS: Fentanyl 100 MCG/2 ML VIAL SLOW IVP PRN (15:56)
--- NOTE | 2019-04-17 17:34 | PDOC.PN ---
- Subjective Encounter Start Date: 04/17/19 Encounter Start Time: 17:32 Mr. Fishman was seen today in follow-up of TIA and post CEA. He does not have any complaints today. - Objective MAR Reviewed: Yes Vital Signs & Weight: Vital Signs (12 hours) Pulse Resp BP Pulse Ox 04/17/19 14:20 60 14 97 04/17/19 09:38 144/73 H Weight Weight 206 lb 9.6 oz I&O: 04/16/19 04/17/19 04/18/19 06:59 06:59 06:59 Intake Total 775 Balance 775 Result Diagrams: 04/16/19 05:14 04/16/19 05:14 Phys Exam - Physical Examination HEENT: PERRLA Respiratory: no wheezing, no rales, no rhonchi, clear to auscultation bilateral Cardiovascular: RRR, no significant murmur, no rub Gastrointestinal: soft, non-tender, no distention, positive bowel sounds Musculoskeletal: pulses present, edema present Dx/Plan (1) TIA (transient ischemic attack) Code(s): G45.9 - TRANSIENT CEREBRAL ISCHEMIC ATTACK, UNSPECIFIED Status: Acute (2) Hypertension Code(s): I10 - ESSENTIAL (PRIMARY) HYPERTENSION Status: Chronic (3) Tobacco abuse Code(s): Z72.0 - TOBACCO USE Status: Chronic - Plan * TIA- patient was found to have right carotid artery disease- he is s/p Right CEA * HTN- blood pressure is stable * CP- resolved * Continue to monitor in the ICU.
[2019-04-17] MEDS: Acetaminophen 325 MG TAB PO PRN (19:47)
[2019-04-17] MEDS: Atorvastatin Calcium 40 MG TAB PO SCH (21:58)
[2019-04-17] MEDS: cloNIDine 0.1 MG TAB PO SCH (21:59)
[2019-04-17 22:00] VITALS: BP 109/45
[2019-04-17] MEDS: ALPRAZolam 1 MG TAB PO PRN (23:04)
[2019-04-18] MEDS: Fentanyl 100 MCG/2 ML VIAL SLOW IVP PRN (04:43)
[2019-04-18 07:49] VITALS: TEMP 98.6
[2019-04-18] MEDS: Aspirin 81 mg Enteric Coated Tablet PO SCH (08:33)
[2019-04-18] MEDS: Allopurinol 100 MG TAB PO SCH (08:33)
[2019-04-18] MEDS: Escitalopram Oxalate 10 mg Tablet PO SCH (08:33)
[2019-04-18] MEDS: Gabapentin 300 MG CAP PO SCH (08:33)
[2019-04-18] MEDS: Amlodipine 5 MG TAB PO SCH (08:40)
--- NOTE | 2019-04-18 08:41 | PDOC.PN ---
- Subjective Encounter Start Date: 04/18/19 Encounter Start Time: 08:38 Mr. Fishman was seen today in follow-up of TIA and right CEA. He does not have any complaints. - Objective MAR Reviewed: Yes Vital Signs & Weight: Vital Signs (12 hours) Temp Pulse Resp BP Pulse Ox 04/18/19 07:49 100 04/18/19 07:07 60 14 100 04/18/19 07:00 98.6 F 04/18/19 04:00 98.4 F 04/18/19 00:14 60 16 98 04/18/19 00:00 97.8 F 04/17/19 21:59 109/45 L Weight Weight 206 lb 9.6 oz I&O: 04/17/19 04/18/19 04/19/19 06:59 06:59 06:59 Intake Total 2420 480 Output Total 525 Balance 1895 480 Result Diagrams: 04/16/19 05:14 04/16/19 05:14 Phys Exam - Physical Examination HEENT: PERRLA Respiratory: no wheezing, no rales, no rhonchi, clear to auscultation bilateral Cardiovascular: RRR, no significant murmur, no rub Gastrointestinal: soft, non-tender, no distention, positive bowel sounds Musculoskeletal: no edema Dx/Plan (1) TIA (transient ischemic attack) Code(s): G45.9 - TRANSIENT CEREBRAL ISCHEMIC ATTACK, UNSPECIFIED Status: Acute (2) Hypertension Code(s): I10 - ESSENTIAL (PRIMARY) HYPERTENSION Status: Chronic (3) Tobacco abuse Code(s): Z72.0 - TOBACCO USE Status: Chronic - Plan * TIA- he is s/p Right CEA * Stable for discharge home..
[2019-04-18] MEDS: hydrOXYzine Pamoate 25 mg Capsule PO SCH (08:42)
--- NOTE | 2019-04-18 10:40 | PQF ---
CLINICAL DOCUMENTATION IMPROVEMENT CLARIFICATION FORM: ICD-10 Updated PLEASE DO AN ADDENDUM TO THE PROGRESS NOTE WITH ANY DOCUMENTATION UPDATES OR ADDITIONS AND CARRY THROUGH TO DC SUMMARY. THANK YOU. DATE: 04/18/2019 ATTN: Dr. Salazar Please exercise your independent, professional judgment in responding to the clarification form. Clinical indicators are provided on the bottom of this form for your review Please check appropriate box(s): Conflicting documentation was noted in the Medical Record, please clarify if patient is being treated/monitored for: [ x] Left carotid endarterectomy [ ] Right carotid endarterectomy. [ ] Other diagnosis [ ] Unable to determine In addition, please specify: Present on Admission (POA): [ ] Yes [ x] No [ ] Unable to determine For continuity of documentation, please document condition throughout progress notes and discharge summary. Thank You. CLINICAL INDICATORS - SIGNS / SYMPTOMS/ LABS Operative Note 04/17: Procedure: Left carotid endarterectomy with bovine pericardial patch angioplasty. 04/18 PN: TIA - he is s/p Right CEA RISKS: H&P 04/15: Carotid artery stenosis bilateral, s/p right carotid endarterectomy in 04/16 PN: Left carotid with 60-70% stenosis, rt occluded, consulted CV surgery. Operative Note 04/17: Left carotid stenosis with right carotid occlusion. TREATMENT: Operative Note 04/17: Procedure: Left carotid endarterectomy with bovine pericardial patch angioplasty. Thank you, Marisa (This form is maintained as a part of the permanent medical record) 2014 [employer]. All Rights Reserved Marisa Villa RN, BSN [email or web address] Office: [phone] [facility]
--- NOTE | 2019-04-18 12:01 | DIS ---
DATE OF ADMISSION: 04/15/2019 DATE OF DISCHARGE: 04/18/2019 PRIMARY CARE PHYSICIAN: Jamar Carlos MD DISCHARGE DISPOSITION: Home. PRIMARY DISCHARGE DIAGNOSES: 1. Transient ischemic attack. 2. Right cerebrovascular disease, status post right carotid endarterectomy. 3. Chest pain, probable noncardiac. 4. Hypertension. 5. History of sick sinus syndrome. 6. History of rheumatoid arthritis. 7. Asthma. DISCHARGE MEDICATIONS: Include; 1. Aspirin 81 mg daily. 2. Alprazolam 1 mg p.r.n. 3. Allopurinol 100 mg daily. 4. Atorvastatin 40 mg at bedtime. 5. Escitalopram 10 mg daily. 6. Gabapentin 600 mg t.i.d. 7. Atarax 25 mg t.i.d. 8. Mobic 7.5 mg twice daily. 9. Omeprazole 40 mg daily. 10. Tylenol No. 3 one tablet q.4 as needed. Please note that amlodipine is on hold due to low blood pressure. PROCEDURES: Procedures done during the admission, the patient had a CTA of the neck showing occlusion of the right internal carotid artery. The patient also had a CT of the [place], in which this [place] appears intact and patent. CODE STATUS: Full code. ALLERGIES: CODEINE, WHICH HE SAYS CAUSES JUST ITCHING OF HIS NOSE. HISTORY OF PRESENT ILLNESS/HOSPITAL COURSE: Mr. Fishman is a pleasant 63-year-old gentleman, who initially presented with chest pain, but then was noted to have some numbness on the left side of his face and he was placed in observation initially. With regard to the chest pain, he was evaluated by his paper tube machine operator and it was felt that this was noncardiac. With regard to the left-sided facial numbness, a CTA was done, which showed occlusion of the right carotid artery. Vascular Surgery was consulted. He underwent a right carotid endarterectomy. He had no complications and an uneventful postoperative course and was subsequently able to be discharged home on 04/18/2019 with close outpatient followup. Job ID: [id number]
--- NOTE | 2019-04-19 11:04 | EKG ---
Test Reason : Blood Pressure : / mmHG Vent. Rate : 070 BPM Atrial Rate : 070 BPM P-R Int : 144 ms QRS Dur : 096 ms QT Int : 406 ms P-R-T Axes : 053 -31 052 degrees QTc Int : 438 ms Normal sinus rhythm Left axis deviation Abnormal ECG Confirmed by DIONISIO RODRIGUEZ ([id number]), general expeditor RUDY SU ([id number]) on 04/19/2019 11:04:08 AM Referred By: Confirmed By:DIONISIO RODRIGUEZ
--- NOTE | 2019-04-20 16:29 | DIS ---
DATE OF ADMISSION: 04/15/2019 DATE OF DISCHARGE: 04/18/2019 PRINCIPAL DIAGNOSIS: Chest wall pain. SECONDARY DIAGNOSIS: Left carotid stenosis. PROCEDURE PERFORMED: Left carotid endarterectomy. HISTORY OF PRESENT ILLNESS AND HOSPITAL COURSE: The patient is a 63-year-old man who had undergone a previous pacemaker implantation about a year ago and right carotid endarterectomy about 10 years ago. He is a chronic pain patient and tells me today on the day of discharge that he has been maintained chronically on Percocet following spinal fractures about 5 years ago. He picked up a 5 gallon bucket of paint and had onset of significant pain associated with his pacemaker pocket and he presented to the emergency room. He had known carotid disease and pending outpatient evaluation for suspected left carotid stenosis. This along with some reports of left facial paresthesias led to the performance of a CTA of his carotids and [place]. This confirmed that his right carotid was occluded, which showed extensive plaque in his left carotid system associated with significant stenosis. He underwent left carotid endarterectomy with bovine pericardial patch angioplasty. Initially, his blood pressure was on the low side, but responded to fluid administration other than complaints of sore throat and incisional pain. He had an uneventful postoperative recovery and is ready for discharge. I will plan on seeing him in about 2 to 3 weeks' time. Job ID: [id number]
== END 2019-04-18 10:21 | disposition home or self-care (01) | DRG 39 ==
LOC: ERS 11:24 → OBSVTOIN 15:24 → 2SW 15:24 → 2NO 04-16 16:35 → SURG A 04-17 11:12 → CCU 04-17 13:00
PROVIDERS: ADMIT Internal Medicine; ATTEND Internal Medicine
PROC: 03CJ0ZZ Extirpation of Matter from Left Common Carotid Artery, Open Approach (ICD-10-PCS; principal; 2019-04-15)
PROC: 03UJ0KZ Supplement Left Common Carotid Artery with Nonautologous Tissue Substitute, Open Approach (ICD-10-PCS; 2019-04-15)
DX: I65.22 Occlusion and stenosis of left carotid artery (principal); G45.9 Transient cerebral ischemic attack, unspecified; I25.10 Atherosclerotic heart disease of native coronary artery without angina pectoris; J45.909 Unspecified asthma, uncomplicated; F32.9 Major depressive disorder, single episode, unspecified; K21.9 Gastro-esophageal reflux disease without esophagitis; M10.9 Gout, unspecified; I49.5 Sick sinus syndrome; F17.210 Nicotine dependence, cigarettes, uncomplicated; I10 Essential (primary) hypertension; E78.5 Hyperlipidemia, unspecified; M06.9 Rheumatoid arthritis, unspecified; Z98.1 Arthrodesis status; Z95.0 Presence of cardiac pacemaker; Z86.73 Personal history of transient ischemic attack (TIA), and cerebral infarction without residual deficits; Z79.899 Other long term (current) drug therapy; Z88.2 Allergy status to sulfonamides; Z88.5 Allergy status to narcotic agent; Z79.82 Long term (current) use of aspirin
CPT/HCPCS: 36415; 70496; 70498; 71045; 80048; 80053; 82550; 84484; 85025; 88307; 93005; 94640; 94760; 96374; 96375; J0690; J1100; J1642; J1644; J1885; J2001; J2250; J2270; J2405; J2704; J2720; J3010; J3490; J7620; P9045; Q0177

== ENCOUNTER 2019-04-19 10:21 | Emergency (ER) | payer MEDICARE, MEDICAID ==
[2019-04-19] MEDS ORDERED: ISOVUE-370 76%-LOCM 1 ML ONE (10:40)
[2019-04-19 11:27] LABS: #Basophils 0.1 thou/uL (0.0-0.2); #Eosinphils 0.2 thou/uL (0.0-0.7); #Lymphocytes 1.4 thou/uL (1.20-3.40); #Monocytes 0.8 thou/uL (0.11-0.59); #Neutrophils 2.8 thou/uL (1.40-6.50); %Basophils 1.3 % (0.0-1.0); %Eosinophils 3.9 % (0.0-10.0); %Lymphocytes 26.5 % (21.0-51.0); %Monocytes 14.9 % (0.0-10.0); %Neutrophils 53.4 % (42.0-75.0); Hemoglobin 9.8 g/dL (14.0-18.0); Mean Corpuscular HGB CONC 33.8 g/dL (32.0-36.0); Mean Corpuscular Hemoglobin 30.2 pg (27.0-31.0); Mean Corpuscular Volume 89.2 fL (78.0-98.0); Mean Platelet Volume 8.6 fL (7.4-10.4); Platelet Count 146 thou/uL (130-400); RBC Distribution Width 12.9 % (11.5-14.5); Red Blood Cell (RBC) Count 3.26 mill/uL (4.70-6.10); White Blood Cell (WBC) Count 5.3 thou/uL (4.8-10.8)
[2019-04-19] MEDS ORDERED: Acetaminophen 325 MG TAB ONE (11:36)
[2019-04-19 11:50] LABS: ALT (SGPT) 17 U/L (8-55); AST (SGOT) 17 U/L (5-34); Albumin 3.8 g/dL (3.4-4.8); Alkaline Phosphatase 56 U/L (40-150); Anion Gap 8 mmol/L (10-20); BUN (Urea Nitrogen) 20 mg/dL (8.4-25.7); Bilirubin, Total 0.3 mg/dL (0.2-1.2); Calc. Creatinine Clearance 0 mL/min (70-130); Carbon Dioxide 24 mmol/L (23-31); Chloride 113 mmol/L (98-107); Estimated GFR-MDRD 75; Globulin 2.1 g/dL (2.4-3.5); Glucose 90 mg/dL (80-115); Potassium 4.1 mmol/L (3.5-5.1); Protein, Total 5.9 g/dL (5.8-8.1); Sodium 141 mmol/L (136-145)
--- NOTE | 2019-04-19 12:33 | CT ---
EXAM: CT Neck Soft Tissue W Con PROVIDED CLINICAL HISTORY: Recent left carotid endarterectomy. Patient now presents with the left neck swelling and redness with fever. COMPARISON: CT angiogram neck on 04/16/2019. FINDINGS: There has been interval postsurgical changes related to left carotid endarterectomy. Previously noted bulky vascular calcifications in the region of the left carotid bulb and proximal left internal carotid artery are not seen, and the left internal carotid artery appears patent on this examination. There is persistent occlusion of the right internal carotid artery which was noted on the prior CTA exam. There is fluid and gas seen within the carotid space on the left. The fluid and gas collection does e xtend laterally at the level of the hyoid bone which extends anterior and then lateral to the sternocleidomastoid muscle where there is a fluid and gas collection with greatest dimensions of 3 cm x 1.3 cm. There is adjacent inflammatory stranding in the subcutaneous soft tissues. There is also fluid seen in the region of the retropharyngeal space. While findings could be postoperative in origi n, infection and abscess formation should be considered. Low-density nodule right lobe of thyroid gland is again seen. Partial visualization of a dual-lead left subclavian cardiac pacemaking device is seen. There is subcutaneous edema seen anteriorly involving the lower neck bilaterally. The visualized upper lung zones are clear. There is evidence of prior granulomatous disease with left paramediastinal and left hilar calcified lymph nodes as well as calcified granuloma in the left upper lobe. Prominent degenerative changes are seen in the cervical spine. There is partial fusion of the C5 and C6 vertebral bodies. There is anterolisthesis of C3 on C4 and C4 on C5 and C7 on T1. IMPRESSION: 1. Postoperative changes related to left endarterectomy. The left internal carotid artery is patent. 2. Fluid and gas collection seen extending along the left carotid space with extension of fluid and g as collection just lateral to the left sternocleidomastoid muscle. Findings are worrisome for infection and abscess formation. In addition, there is fluid seen in the retropharyngeal space. 3. Occlusion of the right internal carotid artery. 4. Prominent degenerative changes cervical spine with anterolisthesis present at several levels as de scribed above. 5. Above findings were discussed with Dr. Bowen in the emergency department on 04/19/2019 at 1221 mar rs.
== END 2019-04-19 13:42 | disposition home or self-care (01) ==
LOC: ERS 10:21
DX: T81.89XA Other complications of procedures, not elsewhere classified, initial encounter (principal); R22.1 Localized swelling, mass and lump, neck; D64.9 Anemia, unspecified; E78.5 Hyperlipidemia, unspecified; I10 Essential (primary) hypertension; F41.9 Anxiety disorder, unspecified; F32.9 Major depressive disorder, single episode, unspecified; F17.210 Nicotine dependence, cigarettes, uncomplicated; Z79.899 Other long term (current) drug therapy; Z79.82 Long term (current) use of aspirin
CPT/HCPCS: 36415; 70491; 80053; 83605; 85025; 87040; Q9966

== ENCOUNTER 2019-08-21 22:59 | Observation (INO) | payer MEDICARE, MEDICAID ==
[2019-08-22 00:01] VITALS: BMI 30.3
[2019-08-22] MEDS ORDERED: Acetaminophen 650 MG Suppository PR PRN (00:51)
[2019-08-22] MEDS ORDERED: Acetaminophen 325 MG TAB PO PRN (00:51)
[2019-08-22] MEDS ORDERED: Ondansetron ODT 4 MG TAB PO PRN (00:51)
[2019-08-22] MEDS ORDERED: Ondansetron PF 4 MG/2 ML Vial IVP PRN (00:51)
[2019-08-22] MEDS ORDERED: Sodium Chloride 0.9% 1,000 ML IV SCH (01:00)
--- NOTE | 2019-08-22 01:00 | PDOC.HHP ---
Hospitalist HPI - History of Present Illness Chest pain History of Present Illness: Mr. Fishman is a 64 year old man presenting with a 3 day history of central and left sided chest pain that has continued to worsen. Reports the pain was first substernal described as pressure and an 8/10 in severity lasting a few minutes. Pain brought on with exertion. He states it has become more frequent and now has been lasting longer. He has noted the pain radiates across to the left side of his chest and sometimes in his left shoulder. Reports some tenderness to his left chest and shoulder. 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 Also reports having a chronic cough which has been productive for yellow or brown sputum. Denies any fevers or chills. No hemoptysis. Denies any shortness of breath. He is known to Dr. Ponce and had presenting with chest pain in 02/2019 at which time he had a normal stress test and was discharged home. ED Course: Patient [facility] and was given nitro SL. He states there was some improvement. EKG done showed NSR, no ST changes or T wave abnormalities. He was not given aspirin at outside ED. Labs: WCC 5, Hgb 12.9, Hct 39.7, Plt 200. Na+ 144, K+ 4.2, Chloride 106, CO2 31, AG 11, Glucose 104, BUN 11, Creat 1.2, GFR 65. ALT 28, AST 23, T Bili 0.3, Alk phos 81, Initial troponin negative. CKMB 3.1. Chest XR: no acute cardiopulmonary process. Hospitalist ROS - Review of Systems Constitutional: denies: fever, chills, sweats, weakness, malaise, other Eyes: denies: pain, vision change, conjunctivae inflammation, eyelid inflammation, redness, other ENT: denies: ear pain, ear discharge, nose pain, nose discharge, nose congestion , mouth pain, mouth swelling, throat pain, throat swelling, other Respiratory: reports: cough (chronic and produtive for brown/yellow sputum). denies: dry, shortness of breath, hemoptysis, SOB with excertion, pleuritic pain , sputum, wheezing, other Cardiovascular: reports: chest pain. denies: palpitations, orthopnea, paroxysmal noc. dyspnea, edema, light headedness, other Gastrointestinal: denies: nausea, vomiting, abdominal pain, diarrhea, constipation, melena, hematochezia, other Genitourinary: denies: dysuria, frequency, incontinence, hematuria, retention, other Musculoskeletal: reports: shoulder pain (left shoulder). 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: CVA Gastrointestinal: reports: GERD, Irritable bowel disease Psych: reports: Anxiety, Depression Musculoskeletal: reports: Other (Chronic neck pain) Rheumatologic: reports: Gout, Rheumatoid arthritis - Past Surgical History Past Surgical History: reports: Total Knee Replacement, Other (cervical spine fusion, right endarterectomy, pacemaker implant, heart cath in 2018(normal coronary arteries)) - Social History Smoking Status: Current every day smoker (Smokes 1 cigarette per day) Alcohol: reports: None Drugs: reports: none Living Situation: With Family Activity level: independent ambulation - Exam General Appearance: NAD Eye: PERRL, anicteric sclera ENT: normocephalic atraumatic, no oropharyngeal lesions Neck: supple, symmetric, no JVD, no thyromegaly Heart: RRR, no murmur, no gallops, no rubs Respiratory: CTAB, no wheezes, no rales, no ronchi, normal chest expansion, no tachypnea Gastrointestinal: soft, non-tender, non-distended, normal bowel sounds, no palpable masses Extremities: no cyanosis, no clubbing, no edema Extremities - other findings: Tenderness to left shoulder Skin: normal turgor, no lesions, no rashes Neurological: cranial nerve grossly intact, normal sensation to touch Musculoskeletal: normal tone Psychiatric: normal affect, normal behavior, A&O x 3 Hospitalist Results - Radiology Interpretation Chest x-ray Status: report reviewed by me Hospitalist H&P A/P - Problem (1) Chest pain Code(s): R07.9 - CHEST PAIN, UNSPECIFIED Status: Acute (2) Left shoulder pain Code(s): M25.512 - PAIN IN LEFT SHOULDER Status: Acute (3) Hyperlipidemia Code(s): E78.5 - HYPERLIPIDEMIA, UNSPECIFIED Status: Acute (4) Hypertension Code(s): I10 - ESSENTIAL (PRIMARY) HYPERTENSION Status: Chronic - Plan Plan: Trend troponins. Give aspirin 325 mg PO x 1. Cardiology consult request placed to Dr. Ponce. Monitor BP and resume home meds once verified. GI Prophylaxis, resume omeprazole. DVT prophylaxis with mechanical SCDs. CODE STATUS: FULL Surrogate decision maker is his son Zhen Fishman.
[2019-08-22 01:59] LABS: #Basophils 0.1 thou/uL (0.0-0.2); #Eosinphils 0.5 thou/uL (0.0-0.7); #Monocytes 1.1 thou/uL (0.11-0.59); #Neutrophils 3.6 thou/uL (1.40-6.50); %Eosinophils 6.6 % (0.0-10.0); %Lymphocytes 27.4 % (21.0-51.0); %Monocytes 14.8 % (0.0-10.0); %Neutrophils 50.2 % (42.0-75.0); Hemoglobin 12.7 g/dL (14.0-18.0); Mean Corpuscular HGB CONC 32.1 g/dL (32.0-36.0); Mean Corpuscular Hemoglobin 27.9 pg (27.0-31.0); Mean Corpuscular Volume 86.9 fL (78.0-98.0); Mean Platelet Volume 8.7 fL (7.4-10.4); Platelet Count 190 thou/uL (130-400); Red Blood Cell (RBC) Count 4.54 mill/uL (4.70-6.10); White Blood Cell (WBC) Count 7.2 thou/uL (4.8-10.8)
[2019-08-22 02:24] LABS: Anion Gap 13 mmol/L (10-20); BUN (Urea Nitrogen) 13 mg/dL (8.4-25.7); Calc. Creatinine Clearance 87 mL/min (70-130); Calcium 9.6 mg/dL (7.8-10.44); Carbon Dioxide 28 mmol/L (23-31); Chloride 105 mmol/L (98-107); Estimated GFR-MDRD 63; Glucose 99 mg/dL (80-115); Potassium 4.2 mmol/L (3.5-5.1); Sodium 142 mmol/L (136-145)
[2019-08-22] MEDS ORDERED: FLU VACC QS2019-20(6MOS UP)/PF 60 MCG/0.5 ML SYRINGE IM ONE (09:00)
[2019-08-22] MEDS ORDERED: Famotidine/PF 20 mg/2ml Vial SLOW IVP SCH (09:00)
--- NOTE | 2019-08-22 10:39 | CT ---
CT OF THE LEFT SHOULDER WITHOUT CONTRAST: Date: 08/22/19 INDICATION: History of left shoulder pain and limited range of motion. FINDINGS: There is moderate glenohumeral osteoarthrosis with an interarticular body seen along the posterior ochoa perior margin of the glenoid measuring 1.2 x 0.5 cm. There is moderate atrophy of the supraspinatus a nd infraspinatus. There is moderate AC joint osteoarthrosis. No acute fracture is evident. There is a pacer generator pack over the left chest wall with leads projecting to the region of the mediastinum . There are calcified granuloma in the left upper lobe with calcified lymph nodes within the left asp ect of the mediastinum. The visualized left lung is clear. IMPRESSION: 1. Moderate glenohumeral osteoarthrosis. 2. Interarticular body. 3. Atrophy of supraspinatus and infraspinatus, suspicious for underlying rotator cuff tear. If clini carlos eduardo indicated, a CT arthrogram may be helpful for further characterization. POS: OFF
[2019-08-22] MEDS ORDERED: Ketorolac Tromethamine 30 MG/ML VIAL IVP SCH (10:45)
[2019-08-22] MEDS ORDERED: Aspirin 81 mg Enteric Coated Tablet PO SCH (11:00)
[2019-08-22] MEDS ORDERED: Amlodipine 5 MG TAB PO SCH ×3 (11:00→21:00)
--- NOTE | 2019-08-22 11:05 | PDOC.HOSPP ---
- Subjective Encounter Date: 08/22/19 Encounter Time: 07:25 Subjective: Patient seen and examined. No new complaints. No overnight events - Objective Vital Signs & Weight: Vital Signs (12 hours) Temp Pulse Resp BP BP Pulse Ox 08/22/19 07:21 97.7 F 76 20 184/84 H 97 08/22/19 04:15 98.1 F 66 22 H 120/59 L 96 08/22/19 00:02 97.8 F 67 16 150/71 H 96 Weight Weight 211 lb 8 oz I&O: 08/21/19 08/22/19 08/23/19 06:59 06:59 06:59 Intake Total 287 Balance 287 Result Diagrams: 08/22/19 01:49 08/22/19 01:49 Radiology Reviewed by me: Yes (CT shoulder) EKG Reviewed by me: Yes Hospitalist ROS - Review of Systems Eyes: denies: pain, vision change, conjunctivae inflammation, eyelid inflammation, redness, other ENT: denies: ear pain, ear discharge, nose pain, nose discharge, nose congestion , mouth pain, mouth swelling, throat pain, throat swelling, other Respiratory: denies: cough, dry, shortness of breath, hemoptysis, SOB with excertion, pleuritic pain, sputum, wheezing, other Cardiovascular: denies: chest pain, palpitations, orthopnea, paroxysmal noc. dyspnea, edema, light headedness, other Gastrointestinal: denies: nausea, vomiting, abdominal pain, diarrhea, constipation, melena, hematochezia, other Genitourinary: denies: dysuria, frequency, incontinence, hematuria, retention, other Musculoskeletal: reports: shoulder pain. denies: neck pain, arm pain, back pain , hand pain, leg pain, foot pain, other - Medication Medications: Active Medications Generic Name Dose Route Start Last Admin Trade Name Freq PRN Reason Stop Dose Admin Famotidine 20 mg 08/22/19 09:00 08/22/19 09:24 Pepcid SLOW IVP 20 mg Q12HR ANNEL Administration Sodium Chloride 1,000 mls @ 65 mls/hr 08/22/19 01:00 08/22/19 01:42 Normal Saline 0.9% IV 1,000 mls .[id number] ANNEL Administration Sodium Chloride 10 ml 08/22/19 00:51 08/22/19 09:23 Flush - Normal Saline IVF 10 ml Q12HR PRN Administration Saline Flush - Exam General Appearance: NAD, awake alert Eye: PERRL, anicteric sclera ENT: normocephalic atraumatic, no oropharyngeal lesions Neck: supple, symmetric, no JVD, no thyromegaly, no lymphadenopathy Heart: RRR, no murmur, no gallops, no rubs, normal peripheral pulses Respiratory: CTAB, no wheezes, no rales, no ronchi Gastrointestinal: soft, non-tender, non-distended, normal bowel sounds Extremities: no cyanosis, no clubbing, no edema Skin: normal turgor, no lesions Neurological: cranial nerve grossly intact, no focal deficits Musculoskeletal: normal tone, normal strength Psychiatric: normal affect, normal behavior Hosp A/P (1) Chest pain Code(s): R07.9 - CHEST PAIN, UNSPECIFIED Status: Acute Qualifiers: Chest pain type: unspecified Qualified Code(s): R07.9 - Chest pain, unspecified (2) Hyperlipidemia Code(s): E78.5 - HYPERLIPIDEMIA, UNSPECIFIED Status: Chronic (3) Left shoulder pain Code(s): M25.512 - PAIN IN LEFT SHOULDER Status: Chronic Qualifiers: Chronicity: chronic Qualified Code(s): M25.512 - Pain in left shoulder; G89.29 - Other chronic pain (4) Hypertension Code(s): I10 - ESSENTIAL (PRIMARY) HYPERTENSION Status: Chronic (5) Tobacco abuse Code(s): Z72.0 - TOBACCO USE Status: Chronic (6) Obesity (BMI 30.0-34.9) Code(s): E66.9 - OBESITY, UNSPECIFIED Status: Chronic (7) Gout Code(s): M10.9 - GOUT, UNSPECIFIED Status: Chronic (8) Rotator cuff arthropathy of left shoulder Code(s): M12.812 - OTH SPECIFIC ARTHROPATHIES, NEC, LEFT SHOULDER Status: Chronic - Plan old records reviewed/req 08/22/19 cardiology consulted he will need outpt ortho follow up medication reviewed as above symptomatic treatment
[2019-08-22] MEDS ORDERED: hydrALAZINE 20 MG/ML VIAL SLOW IVP SCH (12:45)
--- NOTE | 2019-08-22 13:27 | DIS ---
DATE OF ADMISSION: 08/21/2019 DATE OF DISCHARGE: 08/22/2019 PRIMARY CARE PHYSICIAN: Dr. Luis Enrique Carlos. DISCHARGE DISPOSITION: Home. PRIMARY DISCHARGE DIAGNOSES: 1. Chest pain, noncardiac, nonanginal. 2. Left shoulder pain due to rotator cuff tear. SECONDARY DISCHARGE DIAGNOSES: Tobacco abuse disorder, hypertension, obesity with BMI 30, dyslipidemia, and gout. PRIMARY PROCEDURE/OPERATION: None. RADIOLOGICAL INVESTIGATION: Upper extremity CT scan showed rotator cuff arthropathy on left side. SIGNIFICANT LABORATORY DATA: WBC 7.2, hemoglobin 12.7, platelet 190. Sodium 142 and creatinine 1.16. Troponin negative. EKG was unremarkable. DISCHARGE MEDICATIONS: The patient will continue all his previous medication: 1. Ranexa 500 mg b.i.d. 2. Omeprazole 40 mg daily. 3. Remeron 15 mg at bedtime. 4. Aspirin 81 mg daily. 5. Norvasc 5 mg b.i.d. 6. Allopurinol 100 mg daily. 7. Atarax 25 mg q.8 hourly p.r.n. 8. Tylenol No. 4 one tablet b.i.d. p.r.n. 9. Xanax 1 mg p.o. b.i.d. p.r.n. 10. Lipitor 40 mg p.o. at bedtime. 11. Gabapentin 600 mg t.i.d. 12. . 13. Mobic 15 mg daily p.r.n. CONTRAINDICATION: None. CODE STATUS: Full code. INPATIENT NATURAL [employer] TECHNICIAN: Dr. Ponce. TEST RESULTS PENDING ON DISCHARGE: None. ALLERGIES: NONE. DISCHARGE PLAN: Posthospital, the patient is instructed to follow up with orthopedic physician for evaluation of outpatient basis rotator cuff. HOSPITAL COURSE: A 64-year-old male, who was admitted by Veronica Coffman. Please see her H and P for further details. The patient was having vague chest discomfort with left shoulder pain, which is chronic for him. In the emergency room, electrocardiogram was normal. Routine blood test was unremarkable. The patient also had negative cardiac enzymes. The patient was continued to complain of left shoulder pain and that is why CT scan was performed, which showed rotator cuff arthropathy. Cardiology evaluated this patient and they were also agreed with that the patient is not having any cardiac pain and that is why they recommended to give him NSAID. The patient will continue all his previous medication upon discharge. The patient is seen and examined at bedside today. The patient is doing much better in respect to pain edwards, and he will continue all his previous medication. The patient is stable for discharge later on today. Job ID: [id number]
--- NOTE | 2019-08-22 14:46 | CON ---
DATE OF CONSULTATION: HISTORY OF PRESENT ILLNESS: The patient is a 64-year-old gentleman, who presents with recurrent chest discomfort. The patient has a long history of atypical chest pain. He previously underwent a cardiac catheterization in November of 2017. He was found to have normal left ventricular systolic function with normal coronary arteries. He also has a history of sick sinus syndrome and he had placement of electronic pacemaker. The patient also has cerebrovascular disease. He recently underwent carotid endarterectomy. The patient was admitted on multiple occasions with chest discomfort. He underwent a Cardiolite stress test in February of this year, which revealed an abnormal left ventricular ejection fraction of 52% with no evidence of ischemia. The patient reports that he has chest discomfort along in his midsternum. This began 3 days ago. He says this is a persistent discomfort. He did take nitroglycerin, which appeared to lessen the severity of the discomfort. He still reports he has this persistent discomfort. The patient states he has been compliant with his medication. He also reports feeling weak and dizzy. He has had diarrhea. He denies having any fever. PAST MEDICAL HISTORY: 1. Cerebrovascular disease. 2. Hypertension. 3. Sick sinus rhythm. 4. GE reflux. 5. Irritable bowel syndrome. 6. Rheumatoid arthritis. PAST SURGICAL HISTORY: Carotid endarterectomy, knee replacement, and cervical neck surgery. SOCIAL HISTORY: Long history of tobacco abuse. FAMILY HISTORY: Positive family history of coronary artery disease. ALLERGIES: CODEINE AND DEMEROL. MEDICATIONS: 1. Allopurinol 100 daily. 2. Alprazolam 1 tablet t.i.d. 3. Hydroxyzine 25 t.i.d. 4. Gabapentin 600 t.i.d. 5. Meloxicam 15 daily. 6. Omeprazole 40 daily. 7. Aspirin 81 daily. 8. Lipitor 40 at bedtime. 9. Norvasc 5 daily. 10. Vascepa 2 capsules p.o. b.i.d. 11. Wellbutrin 100 daily. 12. Clonidine 0.1 at bedtime. PHYSICAL EXAMINATION: GENERAL: A well-developed gentleman, in no acute distress. VITAL SIGNS: Blood pressure 184/84. NECK: No jugular venous distention. LUNGS: Coarse breath sounds bilateral. HEART: Regular rate and rhythm. Normal S1 and S2. ABDOMEN: Nondistended. EXTREMITIES: Showed no edema. VASCULAR: Radial pulses are 2+. LABORATORY RESULTS: His sodium is 142, potassium 4.2, chloride 105, bicarbonate 28, BUN 13, and creatinine 0.11. White blood cell count 7.2, hemoglobin 12.7, hematocrit 39.4, and platelets are 190. His troponin less than 0.01. EKG Normal sinus rhythm with left axis deviation. IMPRESSION: 1. Chest pain, atypical, probably musculoskeletal. 2. Hypertension. 3. Dyslipidemia. 4. Tobacco abuse. 5. Cerebrovascular disease. 6. History of pacemaker placement. PLAN: This gentleman presents with persistent chest discomfort. It is much worse with movement. His pain has been persistent. There is no evidence of any abnormalities on his electrocardiogram or cardiac enzymes. We will treat the patient's with Toradol. The patient had a recent stress test that was unremarkable, so we would continue to observe. We will follow this patient with you through his hospitalization. Job ID: [id number] MTDD
[2019-08-22 15:14] VITALS: BP 145/69; TEMP 97.5
[2019-08-22] MEDS ORDERED: Atorvastatin Calcium 40 MG TAB PO SCH (21:00)
[2019-08-23] MEDS ORDERED: Aspirin 81 mg Enteric Coated Tablet PO SCH (09:00)
== END 2019-08-22 16:18 | disposition home or self-care (01) ==
LOC: INTOOBSV 23:38 → 2SW 23:38
PROVIDERS: ADMIT Internal Medicine; ATTEND Internal Medicine
DX: R07.2 Precordial pain (principal); M75.102 Unspecified rotator cuff tear or rupture of left shoulder, not specified as traumatic; M19.012 Primary osteoarthritis, left shoulder; I10 Essential (primary) hypertension; E66.9 Obesity, unspecified; E78.5 Hyperlipidemia, unspecified; M10.9 Gout, unspecified; K21.9 Gastro-esophageal reflux disease without esophagitis; K58.9 Irritable bowel syndrome, unspecified; M06.9 Rheumatoid arthritis, unspecified; F41.9 Anxiety disorder, unspecified; F32.9 Major depressive disorder, single episode, unspecified; F17.210 Nicotine dependence, cigarettes, uncomplicated; Z68.30 Body mass index [BMI] 30.0-30.9, adult; Z79.82 Long term (current) use of aspirin; Z79.899 Other long term (current) drug therapy; Z86.73 Personal history of transient ischemic attack (TIA), and cerebral infarction without residual deficits; Z88.5 Allergy status to narcotic agent; Z95.0 Presence of cardiac pacemaker
CPT/HCPCS: 73200; 80048; 84484 ×2; 85025; 90686; 96361; 96374; 96375; 97139; G0008; G0378; 36415; 90471; J0360; J1885; S0028

== ENCOUNTER 2020-03-12 12:12 | Outpatient (CLI) | payer MEDICARE, OTHER ==
--- NOTE | 2020-03-12 13:04 | RAD ---
EXAM: XR Lumbar Spine 2 Or 3 View PROVIDED CLINICAL HISTORY: Neck and low back pain for past 2 weeks. History of remote back injury many years ago. COMPARISON: 03/19/2019 FINDINGS: Again noted is left convex scoliosis thoracolumbar spine. Multilevel degenerative changes are present with multilevel osteophytes as well as narrowing of the intervertebral disc spaces at all levels of the lumbar spine. Endplate degenerative changes are also present at multiple levels. The vertebral body heights are within normal limits. No fracture or subluxation is seen. Dense vascular calcifications are again seen in the abdominal aorta and involving the iliac arteries. Calcifications are also seen overlying the upper abdomen bilaterally which may be attributable to vascular calcifications. Renal calculus on the right cannot be entirely excluded. Calcifications in the left u pper quadrant are also attributable to splenic granulomata. IMPRESSION: 1. Multilevel degenerative changes in the lumbar spine with left convex rotoscoliosis thoracolumbar s pine. 2. Extensive vascular calcifications.
--- NOTE | 2020-03-12 13:10 | RAD ---
EXAM: XR Thoracic Spine 2 View PROVIDED CLINICAL HISTORY: Neck and low back pain. Thoracic spine pain. History of remote injury. COMPARISON: None FINDINGS: Dual lead left subclavian cardiac pacemaking device is noted in place. There is mild S-shaped curvature of the thoracic spine. Multilevel degenerative changes are present i nvolving the cervical as well as thoracic spine with multilevel osteophytes seen. There is fusion of the C5 and C6 vertebral bodies with mild anterolisthesis of C4 on C5 as well as C7 on T1. This was present on prior CT cervical spine on 12/02/2019. There is minimal height loss involving the T6 and T8 vertebral bodies with may represent mild compression fractures of indeterminate age. No additional vertebral body height loss is appreciated. Vascular calcifications are seen in the thoracic aorta. Calcification overlies the anterior mediastinum in the retrosternal location on the lateral projectio n. This is not seen on the frontal view. This may represent a mediastinal calcified lymph node. IMPRESSION: 1. Extensive multilevel degenerative changes involving the cervical as well as the thoracic spine wit h mild vertical height loss involving the T6 and T8 vertebral bodies suggesting minimal compression fractures of indeterminate age. 2. Mild anterolisthesis of C4 on C5 and C7 on T1. Subluxation and degenerative changes involving the cervical spine were also seen on CT cervical spine on 12/02/2019. .
== END 2020-03-12 12:13 | disposition home or self-care (01) ==
LOC: SCSRAD 12:12
PROVIDERS: ATTEND Family Medicine
DX: M54.5 Low back pain (principal); M54.6 Pain in thoracic spine; M47.812 Spondylosis without myelopathy or radiculopathy, cervical region; M47.814 Spondylosis without myelopathy or radiculopathy, thoracic region; M48.8X4 Other specified spondylopathies, thoracic region; M43.12 Spondylolisthesis, cervical region; M43.13 Spondylolisthesis, cervicothoracic region; M47.816 Spondylosis without myelopathy or radiculopathy, lumbar region; I70.0 Atherosclerosis of aorta; I70.8 Atherosclerosis of other arteries; S13.150D Subluxation of C4/C5 cervical vertebrae, subsequent encounter
CPT/HCPCS: 72070; 72100

== ENCOUNTER 2020-04-21 14:32 | Emergency (ER) | payer MEDICARE | END 2020-04-21 15:15 | disposition home or self-care (01) | LOC: ERS 14:32 | DX: M79.81 Nontraumatic hematoma of soft tissue (principal); E78.5 Hyperlipidemia, unspecified; I10 Essential (primary) hypertension; J44.9 Chronic obstructive pulmonary disease, unspecified; M10.9 Gout, unspecified; F41.9 Anxiety disorder, unspecified; F32.9 Major depressive disorder, single episode, unspecified; Z87.891 Personal history of nicotine dependence; Z86.73 Personal history of transient ischemic attack (TIA), and cerebral infarction without residual deficits | CPT/HCPCS: 99283 ==

== ENCOUNTER 2020-05-16 18:24 | Observation (INO) | payer MEDICARE, MEDICAID ==
[2020-05-16] MEDS ORDERED: Nitroglycerin 2% Ointment 1 INCH/1 GM Packet ONE (19:06)
[2020-05-16 19:30] LABS: #Basophils 0.1 thou/uL (0.0-0.2); #Eosinphils 0.5 thou/uL (0.0-0.7); #Lymphocytes 1.7 thou/uL (1.20-3.40); #Monocytes 0.7 thou/uL (0.11-0.59); #Neutrophils 3.7 thou/uL (1.40-6.50); %Basophils 0.9 % (0.0-1.0); %Lymphocytes 25.2 % (21.0-51.0); %Monocytes 10.8 % (0.0-10.0); %Neutrophils 56.2 % (42.0-75.0); Hemoglobin 13.5 g/dL (14.0-18.0); Mean Corpuscular HGB CONC 33.8 g/dL (32.0-36.0); Mean Corpuscular Hemoglobin 30.3 pg (27.0-31.0); Mean Corpuscular Volume 89.5 fL (78.0-98.0); Mean Platelet Volume 8.8 fL (7.4-10.4); Platelet Count 180 thou/uL (130-400); RBC Distribution Width 12.5 % (11.5-14.5); Red Blood Cell (RBC) Count 4.47 mill/uL (4.70-6.10); White Blood Cell (WBC) Count 6.6 thou/uL (4.8-10.8)
--- NOTE | 2020-05-16 19:31 | RAD ---
SINGLE VIEW OF THE CHEST: Comparison: 04-15-19 History: Shortness of breath, chest pain. FINDINGS: Single view of the chest shows a normal sized cardiomediastinal silhouette. The pacemaker is unchange d in position. There is no evidence of consolidation or pleural effusion. IMPRESSION: No evidence of acute cardiopulmonary disease. POS: EAA
[2020-05-16 19:55] LABS: ALT (SGPT) 33 U/L (8-55); AST (SGOT) 28 U/L (5-34); Albumin 4.3 g/dL (3.4-4.8); Alkaline Phosphatase 82 U/L (40-110); Anion Gap 14 mmol/L (10-20); BUN (Urea Nitrogen) 12 mg/dL (8.4-25.7); Bilirubin, Total 0.3 mg/dL (0.2-1.2); Calc. Creatinine Clearance 0 mL/min (70-130); Calcium 9.4 mg/dL (7.8-10.44); Carbon Dioxide 22 mmol/L (23-31); Chloride 104 mmol/L (98-107); Estimated GFR-MDRD 70; Globulin 2.4 g/dL (2.4-3.5); Glucose 94 mg/dL (80-115); Potassium 3.6 mmol/L (3.5-5.1); Protein, Total 6.7 g/dL (5.8-8.1); Sodium 136 mmol/L (136-145)
[2020-05-16] MEDS ORDERED: Nitroglycerin 0.4 MG TAB (25 Tab Bottle) PO PRN (20:43)
[2020-05-16] MEDS ORDERED: Ondansetron PF 4 MG/2 ML Vial IVP PRN (20:48)
[2020-05-16] MEDS ORDERED: Acetaminophen 325 MG TAB PO PRN (20:48)
[2020-05-16] MEDS ORDERED: Acetaminophen 650 MG Suppository PR PRN (20:48)
[2020-05-16] MEDS ORDERED: Ondansetron ODT 4 MG TAB PO PRN (20:48)
[2020-05-16] MEDS ORDERED: Senokot S 8.6-50 MG TAB PO PRN (20:48)
[2020-05-16] MEDS ORDERED: Calcium Carbonate 500 MG ChewTAB PO PRN (20:48)
[2020-05-16] MEDS ORDERED: Atorvastatin Calcium 40 MG TAB PO SCH (21:00)
--- NOTE | 2020-05-16 21:44 | HP ---
PRIMARY CARE PHYSICIAN: Jamar Carlos MD MOTION DESIGNER: Dr. Ponce. CHIEF COMPLAINT: Shortness of breath. HISTORY OF PRESENT ILLNESS: The patient is a 64-year-old male with a past medical history significant for hypertension, hyperlipidemia, CVA 2008, COPD and asthma , who presents to the ER for the above complaint. The patient reports experiencing chest pain for the last 3 years. He reports that he frequently walks his dog and it increases. He reports that this morning, worsening chest pain located substernally, described as tightness and pressure, exacerbated with exertion and relieved with rest. He also reports some associated shortness of breath and diaphoresis. Denies any heart palpitations, nausea, vomiting or diarrhea. Denies any fever or chills. The patient looked ill to his family and therefore his family decided to call EMS. The patient did take two sublingual nitroglycerins prior to EMS arrival, which improved his symptoms; however, did not relieve them. EMS gave the patient a full aspirin and took him to come to the ER. In the ER, the patient presented afebrile, normal blood pressure, normal pulse, normal respirations, 93% on room air, 7/10 pain. EKG was sinus rhythm with no ST elevations. Troponin was 0.028. BNP of 113.8. Chest x -ray was negative for any acute process. CMP and CBC were unremarkable. The patient was given 1 inch of Nitro-Bid paste and will be admitted to the floor. The patient denies any heart palpitations or swelling to lower extremities. The patient denies any cough or wheezing. The patient denies any abdominal pain, nausea, vomiting , or diarrhea. The patient denies any dysuria. The patient denies any recent fever or chills. PAST MEDICAL HISTORY: 1. Hypertension. 2. Hyperlipidemia. 3. COPD. 4. Asthma. 5. CVA 2007, slurred speech deficit. 6. Gout. 7. Anxiety and depression. PAST SURGICAL HISTORY: 1. Neck and back surgery. 2. Pacemaker three years ago. 3. Carotid endarterectomy bilaterally. 4. Bilateral total knee replacement. SOCIAL HISTORY: The patient lives with his family. Socially drinks alcohol. Quit smoking tobacco one year ago. Denies any illicit drug use. FAMILY HISTORY: Significant for cardiac disease. ALLERGIES: CODEINE. HOME MEDICATIONS: 1. Amlodipine unknown dose. 2. Atorvastatin unknown dose. 3. Aspirin 81 mg p.o. daily. 4. Allopurinol unknown dose. REVIEW OF SYSTEMS: All other review of systems are negative unless otherwise stated in the HPI. PHYSICAL EXAMINATION: VITAL SIGNS: Temperature 98.5, blood pressure 123/84, pulse 78, respirations 18 , 99% on room air. CONSTITUTIONAL: The patient is alert and oriented to person, place, and time. He appears comfortable, in no acute distress. HEAD: Atraumatic and normocephalic. EYES: PERRLA. Extraocular muscles intact. Sclerae anicteric. ENT: Nares patent bilaterally. Oropharynx is clear. Uvula midline. Tacky mucous membranes. NECK: Full range of motion. No cervical spinous tenderness. No cervical adenopathy. No JVD. RESPIRATORY/CHEST: The patient's respirations are even and nonlabored. Diminished in the bilateral lower lobes. No rhonchi, wheezes or rales. CARDIOVASCULAR: S1 and S2 appreciated. No murmurs, rubs, or gallops. ABDOMEN: Soft, nontender, mildly distended. Active bowel sounds. No abdominal bruit. No guarding. No rigidity. No rebound. BACK: Full range of motion. No central spinous tenderness. No CVA tenderness. EXTREMITIES: Bilateral upper extremities, full range of motion. Strength normal. Sensation intact. Palpable radial pulses. Bilateral lower extremities, full range of motion. Strength normal. Sensation intact. Palpable pedal pulses. No swelling. NEUROLOGIC: The patient is alert and oriented to person, place, and time. Moves all extremities well. Follows commands. No focal motor deficits. Normal gait. PSYCHIATRIC: Normal affect. A and O x3. Denies suicidal or homicidal ideation. LABS AND DIAGNOSTICS: Sodium 136, potassium 3.6, chloride 104, carbon dioxide 22, BUN 12, creatinine 1.25, calcium 9.4, bilirubin 0.3, AST 28, ALT 33, alkaline phosphatase 82. Troponin 0.028. BNP 113.8, albumin 4.3. WBCs 6.6, hemoglobin 13.5, hematocrit 40, platelets 180. IMPRESSION AND PLAN: 1. Unstable angina. We will admit the patient to the telemetry for observation status. Expected length of stay less than two midnights. The patient presents with a HEART score of 7, Wells score for pulmonary embolism score of 0. The patient reports having recent echo and cardiac stress test within the last two months at Dr. Ponce' office. We will continue aspirin and nitroglycerin paste. We will check a TSH and a Mag level and a fasting lipid in the a.m. We will consult Cardiology. We will leave n.p.o. after midnight. Start gentle IV fluid hydration at midnight. We will obtain a UA and we will continue to trend troponins. 2. Hypertension. The patient presented normotensive. We will restart home medications when reconciled by nursing. 3. Hyperlipidemia. The patient reports taking atorvastatin, unknown dose. We will start atorvastatin 40 mg until home medication reconciled by nursing. 4. Chronic obstructive pulmonary disease. The patient reports feeling short of breath. The patient in no acute respiratory distress. Satting 94% on room air. We will continue to monitor respiratory status and add p.r.n. medications as needed. 5. History of cerebrovascular accident. The patient reports having had a stroke in 2007 that left him with a slurred speech. He has no swallowing dysfunction. We will continue to monitor. 6. SCDs for deep venous thrombosis prophylaxis. Protonix for gastrointestinal prophylaxis. The patient is a full code. RACHANA is his son. His name is #[phone]. 7. Discussed the case with Dr. Crespo. Job ID: [id number] MTDD
[2020-05-16] MEDS ORDERED: Acetaminophen 325 MG TAB ONE (22:02)
[2020-05-16] MEDS ORDERED: HYDROcodone/Acetaminophen 5/325 mg Tablet ONE (22:51)
[2020-05-17] MEDS: Sodium Chloride 0.9% 1,000 ML IV SCH ×2 (01:05→16:18)
[2020-05-17] MEDS: Nitroglycerin 2% Ointment 1 INCH/1 GM Packet TOP SCH ×2 (01:06→06:28)
[2020-05-17 01:36] LABS: Troponin I 0.035 ng/mL (< 0.028)
[2020-05-17 02:06] VITALS: BMI 30.1
[2020-05-17 05:04] LABS: #Basophils 0.1 thou/uL (0.0-0.2); #Eosinphils 0.5 thou/uL (0.0-0.7); #Lymphocytes 1.4 thou/uL (1.20-3.40); #Monocytes 0.7 thou/uL (0.11-0.59); #Neutrophils 2.5 thou/uL (1.40-6.50); %Basophils 1.4 % (0.0-1.0); %Eosinophils 8.9 % (0.0-10.0); %Lymphocytes 28.1 % (21.0-51.0); %Monocytes 13.6 % (0.0-10.0); Mean Corpuscular HGB CONC 33.8 g/dL (32.0-36.0); Mean Corpuscular Volume 88.8 fL (78.0-98.0); Mean Platelet Volume 9.6 fL (7.4-10.4); Platelet Count 169 thou/uL (130-400); RBC Distribution Width 12.6 % (11.5-14.5); Red Blood Cell (RBC) Count 4.33 mill/uL (4.70-6.10); White Blood Cell (WBC) Count 5.1 thou/uL (4.8-10.8)
[2020-05-17 05:34] LABS: Bacteria/HPF None Seen HPF (None Seen); Bilirubin Negative (Negative); Blood, Urine Negative (Negative); Clarity Clear (Clear); Glucose, Urine (Dipstick) Normal (Negative); Ketone, Urine Negative (Negative); Leukocyte Negative Leu/uL (Negative); Nitrite Negative (Negative); Protein, Urine (Dipstick) Negative (Neg-Trace); RBC/HPF 0-3 HPF (0-3); Specific Gravity, Urine 1.005 (1.002-1.036); Squamous Epithelial None Seen HPF (0-3); Urobilinogen Normal mg/dL (Less than 2); WBC/HPF None Seen HPF (0-3)
[2020-05-17 05:35] LABS: Troponin I 0.025 ng/mL (< 0.028)
[2020-05-17 05:52] LABS: Anion Gap 14 mmol/L (10-20); BUN (Urea Nitrogen) 12 mg/dL (8.4-25.7); Calc. Creatinine Clearance 98 mL/min (70-130); Calcium 9.2 mg/dL (7.8-10.44); Carbon Dioxide 20 mmol/L (23-31); Cardiac Risk 4.9 (Less than 4.5); Chloride 110 mmol/L (98-107); Cholesterol 178 mg/dl (< 200 Desired); Estimated GFR-MDRD 88; Glucose 94 mg/dL (80-115); HDL Cholesterol 36 mg/dL (>60 Neg Risk); Potassium 3.7 mmol/L (3.5-5.1); Sodium 140 mmol/L (136-145); Triglycerides 480 mg/dL (Less than 150)
[2020-05-17] MEDS ORDERED: Aspirin 81 mg Enteric Coated Tablet PO SCH (09:00)
[2020-05-17] MEDS ORDERED: Amlodipine 5 MG TAB PO SCH ×2 (09:01→10:45)
--- NOTE | 2020-05-17 10:20 | CON ---
DATE OF CONSULTATION: CONSULTING PHYSICIAN: Dr. Crespo. HISTORY OF PRESENT ILLNESS: This is a 64-year-old gentleman, who presents with recurrent chest discomfort. The patient has a previous history of cerebrovascular disease. In 2017, he underwent a cardiac catheterization in [place], [place] , which revealed normal left ventricular systolic function with normal coronary artery arteries. He apparently had sick sinus syndrome and placed an electronic pacemaker. The patient also has had a previous cerebrovascular accident and has undergone a carotid endarterectomy. The patient has a long history of recurrent chest discomfort. In February of 2019, he underwent a stress test,which revealed him to have normal left ventricular ejection fraction of 52% with no evidence of ischemia. The patient had been admitted on several occasions with atypical chest pain. The patient states that yesterday he developed recurrent chest discomfort. It lasted for several hours. The discomfort was midsternal, and did not radiate. The patient states his chest pain had subsequently resolved. PAST MEDICAL HISTORY: 1. Cerebrovascular disease. 2. CVA. 3. GE reflux. 4. COPD. 5. Gout. 6. Rheumatoid arthritis. PAST SURGICAL HISTORY: Endarterectomy, knee surgery. SOCIAL HISTORY: Former smoker. FAMILY HISTORY: Positive family history of heart disease. ALLERGIES: CODEINE AND DEMEROL. REVIEW OF SYSTEMS: Ten-point system otherwise unremarkable. PHYSICAL EXAMINATION: GENERAL: This is a well-developed gentleman, in no acute distress. VITAL SIGNS: Blood pressure 142/60. NECK: No jugular venous distention. LUNGS: Coarse breath sounds bilateral. HEART: Regular rate and rhythm. Normal S1 and S2. ABDOMEN: Nondistended. EXTREMITIES: Showed trace edema. VASCULAR: Radial pulse 2+. LABORATORY DATA: Sodium 140, potassium 3.7, chloride 110, bicarbonate 20, BUN 12, creatinine 1.0, glucose 88. Troponin 0.025. White blood cell count 5.1, hemoglobin 13.0, hematocrit 38.4, platelets 169. IMAGING STUDIES: EKG : normal sinus rhythm, left axis deviation, nonspecific T -wave abnormality. IMPRESSION: 1. Chest pain, atypical. 2. Dyslipidemia. 3. History of pacemaker placement. 4. Hypertension. 5. Chronic obstructive pulmonary disease. 6. History of CVA. This gentleman presents with atypical chest pain. He will undergo a Cardiolite stress test. If there is no evidence of ischemia, we will continue medical therapy. We will follow this patient with you through his hospitalization. Job ID: [id number] MTDD
[2020-05-17] MEDS ORDERED: Regadenoson 0.4 MG/5 ML SYRINGE ONE (13:13)
--- NOTE | 2020-05-17 15:36 | NM ---
EXAM: CARDIAC SPECT HISTORY: Chest pain, CVA, sick sinus syndrome, COPD TECHNIQUE: A myocardial perfusion scan was performed using the single isotope 1 day protocol with argelia hnetium 99m sestamibi. [10 mCi] was injected intravenously for the rest exam followed by 30 mCi for the stress study. Pharmacologic stress with Lexiscan was monitored and interpreted by Betzy Almodovar PA FINDINGS: Homogeneous tracer distribution is seen in the myocardial segments on stress and rest image s without fixed or reversible defects. Gated SPECT LVEF: 53% Wall motion exam: Normal IMPRESSION: Normal myocardial perfusion scan
[2020-05-17 16:15] VITALS: TEMP 97.7
[2020-05-17 16:17] VITALS: BP 164/87
--- NOTE | 2020-05-18 02:58 | DIS ---
DATE OF ADMISSION: 05/16/2020 DATE OF DISCHARGE: 05/17/2020 DISCHARGE DIAGNOSIS: Chest pain, possibly secondary to indigestion versus gastroesophageal reflux disease. CONSULTATION: Dr. Omar Ponce of Cardiology. PROCEDURE: Nuclear stress test. BRIEF HISTORY OF PRESENT ILLNESS: This is a 64-year-old male with past medical history of CVA, GERD, who presented to the emergency room with chest pain. The patient stated that he had the chest pain that occurred while he was sitting on his couch yesterday. He stated that it persisted until he came to the emergency room. His chest discomfort actually appeared to be more in his abdomen since he was pointing to his epigastric area. He denied any diaphoresis, shortness of breath , cough, fevers, chills, or arm numbness. He was admitted for further workup. HOSPITAL COURSE: Chest pain: The patient's first troponin was mildly positive at 0.035. He underwent a nuclear stress test, which was unremarkable. It was thought that his pain was more likely epigastric since he pointed to the epigastric area as the source of his pain and he had no worsening pain on exertion. He was advised to continue his omeprazole, but he should t try taking it on an empty stomach and first thing in the morning and to avoid spicy and fatty foods. The patient ambulated to the bathroom at the time of discharge and had no pain on exertion. He was discharged and will follow up with his PCP in a week. Anemia: The patient's hemoglobin was 13 at the time of discharge. Please consider further workup as an outpatient. DISCHARGE PHYSICAL EXAMINATION: VITAL SIGNS: Temperature 97.7, heart rate 70, respiratory rate 16, O2 saturation 99% on room air, and blood pressure 164/87. GENERAL: The patient is alert, awake, and oriented x3. CVS: Regular rate and rhythm with no murmurs, rubs, or gallops. LUNGS: Clear to auscultation bilaterally. ABDOMEN: Positive bowel sounds. Soft, nontender, and nondistended. EXTREMITIES: No edema. PERTINENT LABORATORY DATA: CBC 05/17: White count 5.1, hemoglobin 13.0, hematocrit 38.4, platelet count 169. BMP 05/17: Shows elevated chloride 110, bicarb 20. Rest of BMP unremarkable. Lipid panel: Triglycerides 480, cholesterol 178, LDL too numerous to calculate , HDL 36. TSH: 0.6058 UA: Normal. IMAGING: Chest x-ray 05/16: Shows no evidence of acute disease. Nuclear stress test 05/17: Shows normal myocardial perfusion scan. DISCHARGE CONDITION: Stable. ACTIVITY: As tolerated. DIET: Heart healthy diet. DISCHARGE MEDICATIONS: The patient's home medications were resumed. DISCHARGE INSTRUCTIONS: The patient to follow up with his PCP in a week. Job ID: [id number] MTDD
[2020-05-18] MEDS ORDERED: Amlodipine 5 MG TAB PO SCH (09:00)
== END 2020-05-17 18:00 | disposition home or self-care (01) ==
LOC: ERS 18:24 → ERHOLD 20:20 → 2SE 05-17 00:47
PROVIDERS: ADMIT Internal Medicine; ATTEND Internal Medicine
DX: R07.89 Other chest pain (principal); D64.9 Anemia, unspecified; K21.9 Gastro-esophageal reflux disease without esophagitis; J44.9 Chronic obstructive pulmonary disease, unspecified; E78.5 Hyperlipidemia, unspecified; M06.9 Rheumatoid arthritis, unspecified; M10.9 Gout, unspecified; Z86.73 Personal history of transient ischemic attack (TIA), and cerebral infarction without residual deficits; Z87.891 Personal history of nicotine dependence; Z88.5 Allergy status to narcotic agent
CPT/HCPCS: 71045; 78452; 80048; 80061; 81001; 83735; 83880; 84484 ×3; 85025; 93005; 93017; 94760; 96360; 96361; 99285; A9500; G0378 ×2; 36415; 80053; 84443; J2785

== ENCOUNTER 2020-08-10 11:00 | Outpatient (CLI) | payer MEDICARE, OTHER ==
--- NOTE | 2020-08-10 12:12 | CT ---
EXAM: CT Pulmonary Lung Scan PROVIDED CLINICAL HISTORY: Tobacco abuse. Patient states smoked 1 pack per day for 50 years. Shortness of breath upon exertion. COMPARISON: None FINDINGS: Single approximately 3 mm pulmonary nodule is seen in the posterior and superior aspect of the right middle lobe. No additional discrete pulmonary nodule or mass is seen in the lungs bilaterally. There are mild peripheral interstitial densities seen at each lung base which likely representing mil d chronic lung changes. Calcified granuloma is seen in the left upper lobe. No pleural effusion is identified. Calcified mediastinal and left hilar lymph nodes are present related to prior granulomatous disease. Lack of intravenous contrast does limit evaluation of the mediastinal structures and vasculature. However, no enlarged lymph nodes are seen by CT size criteria. A dual-lead left subclavian cardiac p acemaking device is noted in place. Vascular calcifications are seen in the thoracic aorta and in the coronary arteries. Small hiatal hernia is present. Calcified granulomata are seen in the spleen. Multilevel degenerative changes are seen in the thoracic spine with mild right convex curvature thora cic spine. IMPRESSION: Lung RADS category 2-nonspecific tiny 3 mm pulmonary nodule right middle lobe. Continued annual scree jules with low-dose CT scan thorax in 12 months is recommended. Lung RADS category S-no clinically significant or potentially clinically significant additional findi ngs are seen.
== END 2020-08-10 11:01 | disposition home or self-care (01) ==
LOC: BICCT 11:00
PROVIDERS: ATTEND Family Medicine
DX: Z12.2 Encounter for screening for malignant neoplasm of respiratory organs (principal); Z87.891 Personal history of nicotine dependence; R91.1 Solitary pulmonary nodule
CPT/HCPCS: 80048; 80061; 80076; G0297; 36415

== ENCOUNTER 2025-06-10 23:12 | Observation (INO) | payer OTHER ==
[2025-06-11] MEDS ORDERED: Acetaminophen 500 MG TAB ONE (00:31)
[2025-06-11] MEDS ORDERED: Ketorolac Tromethamine 30 MG (1 mL) VIAL ONE (01:40)
[2025-06-11 02:10] LABS: #Basophils 0.07 10x3/uL (0.0-0.2); #Eosinophils 0.13 10x3/uL (0.0-0.7); #Monocytes 0.91 10x3/uL (0.11-0.59); #Neutrophils 5.65 10x3/uL (1.40-6.50); %Basophils 0.9 % (0.0-1.0); %Eosinophils 1.7 % (0.0-10.0); %Lymphocytes 12.0 % (21.0-51.0); %Monocytes 11.8 % (0.0-10.0); %Neutrophils 73.2 % (42.0-75.0); Hematocrit 35.6 % (42.0-52.0); Hemoglobin 11.9 g/dL (14.0-18.0); Mean Corpuscular Hemoglobin 29.1 pg (27.0-31.0); Mean Corpuscular Volume 87.0 fL (78.0-98.0); Platelet Count 171 10x3/uL (130-400); Red Blood Cell (RBC) Count 4.09 mill/uL (4.70-6.10); White Blood Cell (WBC) Count 7.72 10x3/uL (4.8-10.8)
[2025-06-11 02:26] LABS: INR-International Normal Ratio 1.0; Prothrombin Time 13.1 sec (12.0-14.7)
[2025-06-11 02:27] LABS: ALT (SGPT) 13 U/L (Less than 45); AST (SGOT) 26 U/L (11-34); Albumin 3.6 g/dL (3.1-4.5); Alkaline Phosphatase 72 U/L (40-110); Anion Gap 16 mmol/L (10-20); BUN (Urea Nitrogen) 13 mg/dL (8.4-25.7); Bilirubin, Total 0.4 mg/dL (0.3-1.2); Calc. Creatinine Clearance 0 mL/min (70-130); Calcium 8.6 mg/dL (7.8-10.44); Carbon Dioxide 25 mmol/L (23-31); Chloride 103 mmol/L (98-107); Globulin 2.6 g/dL (2.4-3.5); Glucose 109 mg/dL (80-115); Lipase 12 U/L (8-78); Magnesium 1.9 mg/dL (1.6-2.6); PTT 25.2 sec (22.9-36.1); Potassium 3.5 mmol/L (3.5-5.1); Sodium 140 mmol/L (136-145)
[2025-06-11] MEDS ORDERED: Acetaminophen 325 MG TAB PO PRN (03:26)
[2025-06-11] MEDS ORDERED: Ondansetron PF 4 MG/2 ML Vial IVP PRN (03:26)
[2025-06-11 04:17] LABS: Cocaine Metabolite Screen Negative (Negative); THC/Cannabinoid Screen PRELIM POSITIVE (Negative); Tricyclic Screen PRELIM POSITIVE (Negative)
[2025-06-11 04:53] LABS: #Basophils 0.06 10x3/uL (0.0-0.2); #Eosinophils 0.16 10x3/uL (0.0-0.7); #Monocytes 0.89 10x3/uL (0.11-0.59); #Neutrophils 4.01 10x3/uL (1.40-6.50); %Basophils 1.0 % (0.0-1.0); %Eosinophils 2.6 % (0.0-10.0); %Lymphocytes 16.6 % (21.0-51.0); %Monocytes 14.4 % (0.0-10.0); %Neutrophils 65.1 % (42.0-75.0); Hematocrit 36.2 % (42.0-52.0); Hemoglobin 11.6 g/dL (14.0-18.0); Mean Corpuscular Hemoglobin 28.7 pg (27.0-31.0); Mean Corpuscular Volume 89.6 fL (78.0-98.0); Platelet Count 160 10x3/uL (130-400); Red Blood Cell (RBC) Count 4.04 mill/uL (4.70-6.10); White Blood Cell (WBC) Count 6.16 10x3/uL (4.8-10.8)
[2025-06-11 05:16] LABS: Anion Gap 15 mmol/L (10-20); BUN (Urea Nitrogen) 14 mg/dL (8.4-25.7); Calc. Creatinine Clearance 0 mL/min (70-130); Calcium 8.8 mg/dL (7.8-10.44); Carbon Dioxide 26 mmol/L (23-31); Chloride 104 mmol/L (98-107); Glucose 108 mg/dL (80-115); Potassium 4.4 mmol/L (3.5-5.1); Sodium 141 mmol/L (136-145)
[2025-06-11 06:29] LABS: Bacteria/HPF None Seen HPF (None Seen); CAUTI Indications for Culture Dysuria,urgency,freq; Glucose, Urine (Dipstick) Normal (Negative); Leukocyte 25 Leu/uL (Negative); Protein, Urine (Dipstick) 30 mg/dL (Neg-Trace); RBC/HPF 0-3 HPF (0-3); Specific Gravity, Urine 1.042 (1.002-1.036)
[2025-06-11 06:32] LABS: Urine Culture Reflex No No
[2025-06-11 06:52] VITALS: BMI 28.2
[2025-06-11] MEDS: Acetaminophen 325 MG TAB PO PRN (06:56)
[2025-06-11] MEDS: Famotidine 20 MG TAB PO SCH (09:05)
[2025-06-11] MEDS: Gabapentin 300 MG CAP PO SCH (09:05)
[2025-06-11] MEDS: Nitroglycerin 0.4 MG TAB (25 Tab Bottle) SL PRN (09:15)
[2025-06-11] MEDS ORDERED: Albuterol 200 PUFF INH INH PRN (10:30)
[2025-06-11] MEDS: Melatonin 3 MG TAB PO PRN (21:57)
[2025-06-12 05:06] LABS: Hematocrit 35.7 % (42.0-52.0); Hemoglobin 11.8 g/dL (14.0-18.0); Mean Corpuscular Hemoglobin 29.5 pg (27.0-31.0); Mean Corpuscular Volume 89.3 fL (78.0-98.0); Platelet Count 163 10x3/uL (130-400); Red Blood Cell (RBC) Count 4.00 mill/uL (4.70-6.10); White Blood Cell (WBC) Count 4.46 10x3/uL (4.8-10.8)
[2025-06-12 05:12] LABS: Anion Gap 12 mmol/L (10-20); BUN (Urea Nitrogen) 14 mg/dL (8.4-25.7); Calc. Creatinine Clearance 60 mL/min (70-130); Calcium 8.7 mg/dL (7.8-10.44); Carbon Dioxide 28 mmol/L (23-31); Chloride 105 mmol/L (98-107); Glucose 109 mg/dL (80-115); Potassium 4.2 mmol/L (3.5-5.1); Sodium 141 mmol/L (136-145)
[2025-06-12 05:46] LABS: Platelet Adequacy Comment Platelets Normal; RBC Morphology Within Normal Limits; Smudge Cells 18.8 %
[2025-06-12] MEDS: Allopurinol 100 MG TAB PO SCH (07:43)
[2025-06-12] MEDS: Famotidine 20 MG TAB PO SCH (07:44)
[2025-06-12 15:36] VITALS: BP 187/80; TEMP 98.5
== END 2025-06-12 18:07 | disposition home or self-care (01) ==
LOC: ERS 23:12 → ERHOLD 06-11 03:26 → 2NO 06-11 06:27
PROVIDERS: ADMIT Internal Medicine; ATTEND Internal Medicine
DX: R07.89 Other chest pain (principal); I10 Essential (primary) hypertension; E78.5 Hyperlipidemia, unspecified; D53.9 Nutritional anemia, unspecified; K21.9 Gastro-esophageal reflux disease without esophagitis; R06.02 Shortness of breath; R51.9 Headache, unspecified; J44.9 Chronic obstructive pulmonary disease, unspecified; N17.9 Acute kidney failure, unspecified; F12.10 Cannabis abuse, uncomplicated; Z88.5 Allergy status to narcotic agent; Z79.51 Long term (current) use of inhaled steroids; Z79.899 Other long term (current) drug therapy; Z87.891 Personal history of nicotine dependence
CPT/HCPCS: 70450; 71045; 80048 ×2; 80053; 80306; 81001; 83690; 83735; 83880; 84484 ×2; 85025 ×3; 85610; 85730; 87428; 93005; 94640; 94760; 96374; 99285; J1885; J7030; 36415; 78452; 96375; G0378; J7620

== ENCOUNTER 2025-07-06 18:34 | Emergency (ER) | payer OTHER ==
[2025-07-06 22:04] LABS: #Basophils 0.09 10x3/uL (0.0-0.2); #Eosinophils 0.32 10x3/uL (0.0-0.7); #Monocytes 0.89 10x3/uL (0.11-0.59); #Neutrophils 3.03 10x3/uL (1.40-6.50); %Basophils 1.6 % (0.0-1.0); %Eosinophils 5.7 % (0.0-10.0); %Lymphocytes 21.9 % (21.0-51.0); %Monocytes 15.9 % (0.0-10.0); %Neutrophils 54.4 % (42.0-75.0); Hematocrit 34.6 % (42.0-52.0); Hemoglobin 11.5 g/dL (14.0-18.0); Mean Corpuscular Hemoglobin 29.9 pg (27.0-31.0); Mean Corpuscular Volume 90.1 fL (78.0-98.0); Platelet Count 189 10x3/uL (130-400); Red Blood Cell (RBC) Count 3.84 mill/uL (4.70-6.10); White Blood Cell (WBC) Count 5.58 10x3/uL (4.8-10.8)
[2025-07-06 22:31] LABS: ALT (SGPT) 13 U/L (Less than 45); AST (SGOT) 24 U/L (11-34); Albumin 3.8 g/dL (3.1-4.5); Alkaline Phosphatase 74 U/L (40-110); Anion Gap 14 mmol/L (10-20); BUN (Urea Nitrogen) 11 mg/dL (8.4-25.7); Bilirubin, Total 0.3 mg/dL (0.3-1.2); Calc. Creatinine Clearance 0 mL/min (70-130); Calcium 9.0 mg/dL (7.8-10.44); Carbon Dioxide 22 mmol/L (23-31); Chloride 107 mmol/L (98-107); Globulin 2.6 g/dL (2.4-3.5); Glucose 97 mg/dL (80-115); Potassium 3.7 mmol/L (3.5-5.1); Sodium 139 mmol/L (136-145)
== END 2025-07-06 23:40 | disposition home or self-care (01) ==
LOC: ERS 18:34
DX: I11.0 Hypertensive heart disease with heart failure (principal); I50.9 Heart failure, unspecified; I20.9 Angina pectoris, unspecified; Z86.73 Personal history of transient ischemic attack (TIA), and cerebral infarction without residual deficits; J44.9 Chronic obstructive pulmonary disease, unspecified; Z95.0 Presence of cardiac pacemaker; Z87.891 Personal history of nicotine dependence
CPT/HCPCS: 71045; 80053; 83880; 84484; 85025; 93005